=== PATIENT | female | born 1985 | race Caucasian/White ===

== ENCOUNTER 2018-06-13 17:12 | Inpatient (IN) ==
[2018-06-14] MEDS ORDERED: Acetaminophen 325 MG Tablet PO PRN (04:23)
[2018-06-14] MEDS ORDERED: Vancomycin Consult Pharmacy OTHER PRN (04:28)
--- NOTE | 2018-06-14 04:30 | P.HPIM ---
History of Present Illness Primary Care Physician: No Primary Care Physician History of Present Illness: 32-year-old female with a history of IVDA presented to the ED with complaints of a 5 day fever. Patient states on Friday she started to have fevers and chills with associated nausea and vomiting. Patient is an IV drug abuser of Dilaudid, last dose was 5 PM prior to coming to the hospital. She states she does use it twice a day. She denies any associated chest pain, shortness of breath, dizziness or headaches. Inpatient Certification: I certify that the inpatient services were ordered in accordance with Medicare regulations governing the order. This includes certification that hospital inpatient services are reasonable and necessary and in the case of services not specified as inpatient-only under 42 CFR 419.22(n), that they are appropriately provided as inpatient services in accordance to with the 2-midnight benchmark under 43 CFR 412.3(e) PMFSH - History History Provided By: Patient - Medical History Medical History: Medical History (Last Reviewed 06/14/18 @ 04:18 by SILVIA Oviedo) IV drug abuse Patient denies medical problems - Surgical History Surgical History: Surgical History (Last Reviewed 06/14/18 @ 04:18 by SILVIA Oviedo) H/O tubal ligation History of ankle surgery History of intestinal surgery - Family History Family History: Family History (Last Reviewed 06/14/18 @ 04:18 by SILVAI Oviedo) Other Family history normal - Social History I have reviewed the patient's Social History: Yes - Tobacco History Second Hand Smoke Exposure: Yes Tobacco Use In Past 30 Days: No Smoking Status: Former smoker Tobacco Type: Cigarettes - Alcohol History How Often Do You Have a Drink Containing Alcohol: Never - Substance Use History Substance History: Active Abuse - Substance Use Type Opiates Status: Active Route Used: Intravenously Frequency: DAILY Reason for Use: Feels Good - Immunization History Tetanus Immunization: <5 Years Tetanus Immunization Year if Known: 2014 Hx Influenza Vaccine This Season: No Medications and Allergies Allergies Allergy/AdvReac Type Severity Reaction Status Date / Time No Known Allergies Allergy Unverified 06/13/18 17:20 Home Medications Medication Instructions Recorded Confirmed Type No Known Home Medications 06/13/18 06/13/18 History Exam Vital signs: Intake & Output 06/13/18 06/13/18 06/14/18 06:59 18:59 06:59 Weight 62.2 kg Other: Weight On Admission 62.2 kg Narrative: GENERAL: This is a well-nourished, well-developed patient, in no apparent distress. SKIN: Warm, dry, intact, no ecchymosis or open lesions EYES: Pupils equal round and reactive, no scleral edema or drainage CARDIOVASCULAR: Regular rate and rhythm without murmurs, gallops, or rubs. RESPIRATORY: Clear to auscultation. Breath sounds equal bilaterally. No wheezes , rales, or rhonchi. GASTROINTESTINAL: Abdomen soft, non-tender, nondistended. Normal active bowel sounds MUSCULOSKELETAL: Extremities without clubbing, cyanosis, or edema. NEURO: Alert & Oriented x4 to person, place, time, situation. Moves all ext x4 Caprini VTE Risk Assessment Caprini VTE Risk Assessment: No/Low Risk (score <= 1) Caprini Risk Assessment Model: Point Value = 1 Point Value = 2 Point Value = 3 Point Value = 5 Age 41-60 Minor surgery BMI > 25 kg/m2 Swollen legs Varicose veins or History of unexplained or recurrent spontaneous Oral contraceptives or hormone replacement Sepsis (< 1 month) Serious lung disease, including pneumonia (< 1 month) Abnormal pulmonary function Acute myocardial infarction Congestive heart failure (< 1 month) History of inflammatory bowel disease Medical patient at bed rest Age 61-74 Arthroscopic surgery Major open surgery (> 45 min) Laparoscopic surgery (> 45 min) Malignancy Confined to bed (> 72 hours) Immobilizing plaster cast Central venous access Age >= 75 History of VTE Family history of VTE Factor V Leiden Prothrombin [id number] Lupus anticoagulant Anticardiolipin antibodies Elevated serum homocysteine Heparin-induced thrombocytopenia Other congenital or acquired thrombophilia Stroke (< 1 month) Elective arthroplasty Hip, pelvis, or leg fracture Acute spinal cord injury (< 1 month) Prophylaxis Regimen: Total Risk Factor Score Risk Level Prophylaxis Regimen 0-1 Low Early ambulation 2 Moderate Order ONE of the following: *Sequential Compression Device (SCD) *Heparin 5000 units SQ BID 3-4 Higher Order ONE of the following medications: *Heparin 5000 units SQ TID *Enoxaparin/Lovenox 40 mg SQ daily (WT < 150 kg, CrCl > 30 mL/min) *Enoxaparin/Lovenox 30 mg SQ daily (WT < 150 kg, CrCl > 10-29 mL/min) *Enoxaparin/Lovenox 30 mg SQ BID (WT < 150 kg, CrCl > 30 mL/min) AND/OR *Sequential Compression Device (SCD) 5 or more Highest Order ONE of the following medications: *Heparin 5000 units SQ TID (Preferred with Epidurals) *Enoxaparin/Lovenox 40 mg SQ daily (WT < 150 kg, CrCl > 30 mL/min) *Enoxaparin/Lovenox 30 mg SQ daily (WT < 150 kg, CrCl > 10-29 mL/min) *Enoxaparin/Lovenox 30 mg SQ BID (WT < 150 kg, CrCl > 30 mL/min) AND *Sequential Compression Device (SCD) Assessment and Plan - Plan Sepsis, with bandemia, suspect endocarditis WBC 25.4, 27% bands, HR 111 2D echo ordered Blood cultures pending IV antibiotics Fer Consult infectious disease for evaluation Labs in a.m. Acute kidney injury, creatinine 1.3, likely due to dehydration IVF Trend creatinine Avoid nephrotoxins IVDA Cessation given, counseled on quitting Monitor for withdrawals DVT prophylaxis: Lovenox Discussed Condition With: Patient and RN H&P: Quality - VTE Deep Vein Thrombosis/Pulmonary Embolism Present on Admission: No
[2018-06-14] MEDS: Enoxaparin Inj 40 MG/0.4 ML Syringe SQ SCH (06:08)
[2018-06-14] MEDS: Sod Chloride 0.9% Inj 1,000 ML IV.CONT SCH ×3 (06:17→21:26)
[2018-06-14 06:45] LABS: Baso % (Auto) 0.1 % (0.0-2.0); Eos % (Auto) 0.2 % (0.0-4.0); Hematocrit 33.6 % (35.0-46.0); Hemoglobin 11.5 gm/dL (11.6-15.3); Lymph # (Auto) 0.8 th/mm3 (1.0-4.8); Lymph % (Auto) 4.3 % (9.0-44.0); Mean Corpuscular HGB Conc 34.3 % (32.0-36.0); Mean Corpuscular Hemoglobin 31.1 pg (27.0-34.0); Mean Corpuscular Volume 90.7 fL (80.0-100.0); Mean Platelet Volume 8.5 fL (7.0-11.0); Mono # (Auto) 1.9 th/mm3 (0.0-0.9); Mono % (Auto) 9.5 % (0.0-8.0); Neut # (Auto) 16.8 th/mm3 (1.8-7.7); Neut % (Auto) 85.9 % (16.0-70.0); Platelet Count 231 th/mm3 (150-450); Red Cell Distribution Width 13.9 % (11.6-17.2); White Blood Count 19.6 th/mm3 (4.0-11.0)
[2018-06-14] MEDS: Piperacil/Tazo 3.375 GM Premix 50 ML IV.SIG SCH ×3 (06:54→18:29)
[2018-06-14 07:15] LABS: Albumin 2.2 g/dL (3.4-5.0); Anion Gap 12 meq/L (5-15); Aspartate Aminotransferase 90 U/L (15-37); Blood Urea Nitrogen 28 mg/dL (7-18); Calcium 7.8 mg/dL (8.5-10.1); Carbon Dioxide 19.5 meq/L (21.0-32.0); Chloride 104 meq/L (98-107); Glomerular Filtration Rate 31 mL/min (>89); Glucose,Random 96 mg/dL (74-106); Potassium 3.3 meq/L (3.5-5.1); Sodium 135 meq/L (136-145)
[2018-06-14 07:17] LABS: Alanine Aminotransferase 99 U/L (10-53)
[2018-06-14 07:19] LABS: Alkaline Phosphatase 177 U/L (45-117); Total Protein 6.3 g/dL (6.4-8.2)
[2018-06-14 08:04] LABS: Dohle Bodies Present; Lymphocytes 3 % (9-44); Monocytes 5 % (0-8)
[2018-06-14 08:05] LABS: Platelet Estimate Normal (Normal); Platelet Morphology Normal (Normal)
--- NOTE | 2018-06-14 08:19 | XR ---
EXAM DATE: 06/14/2018 8:09 AM EDT AGE/SEX: 32 years / Female INDICATIONS: Evaluate for Infiltrate CLINICAL DATA: This is the patient's initial encounter. Patient reports that signs and symptoms have been present for 1 day and indicates a pain score of 0/10. MEDICAL/SURGICAL HISTORY: None. None. COMPARISON: No prior exams available for comparison. FINDINGS: A single AP view of the chest demonstrates the lungs to be symmetrically aerated without evidence of mass, infiltrate or effusion. The cardiomediastinal contours are unremarkable. Osseous structures a re intact. CONCLUSION: Negative examination. Electronically signed by: Cirilo Sultana MD 06/14/2018 8:17 AM EDT
--- NOTE | 2018-06-14 11:11 | P.PN ---
Subjective Interval history: Follow-up on patient with history of IV drug use, fever times 5 days. Patient seen and examined. Patient states that she feels a little better since being admitted. She continues to have fevers but denies any nausea, vomiting, chest pain or shortness of breath. She denies any hematuria, dysuria or diarrhea. Patient admits that she is an IV drug user and last used Dilaudid yesterday. Physical Exam Vital signs: Vital Signs 06/14/18 04:00 06/14/18 08:00 Temperature 101.6 F H 98.5 F Pulse Rate 98 H 72 Respiratory Rate 18 20 Blood Pressure 102/55 L 88/53 L Pulse Oximetry 98 97 Intake & Output 06/13/18 06/14/18 06/14/18 18:59 06:59 18:59 Intake Total 550 / 550 Balance 550 / 550 Weight 62.2 kg Intake: IV 50 / 50 Zosyn 3.375 GM Premix 50 ML @ 50 / 50 100 mls/hr IV.SIG Q6H LOLITA Rx#: [id number] Oral 500 / 500 Other: Weight On Admission 62.2 kg Narrative: GENERAL: Well-developed well-nourished female, in no acute distress. Awake and alert. SKIN: Warm and sweaty. HEAD: Atraumatic. Normocephalic. EYES: Pupils equal and round. No scleral icterus. No injection or drainage. ENT: No nasal bleeding or discharge. Mucous membranes pink and moist. NECK: Trachea midline. CARDIOVASCULAR: Regular rate and rhythm. No murmur auscultated. RESPIRATORY: No accessory muscle use. Clear to auscultation. Breath sounds equal bilaterally. GASTROINTESTINAL: Abdomen soft, non-tender, nondistended. +BS. MUSCULOSKELETAL: Extremities without clubbing, cyanosis, or edema. No obvious deformities. NEUROLOGICAL: Awake and alert. No obvious cranial nerve deficits. Motor grossly within normal limits. Able to move all extremities spontaneously. Normal speech. PSYCHIATRIC: Appropriate mood and affect; insight and judgment poor. Results - Labs CBC & Chem 7: 06/14/18 06:03 06/14/18 06:03 Laboratory Results - last 24 hr 06/14/18 06/14/18 06:03 06:03 WBC 19.6 H RBC 3.70 L Hgb 11.5 L Hct 33.6 L MCV 90.7 MCH 31.1 MCHC 34.3 RDW 13.9 Plt Count 231 MPV 8.5 Prelim Diff (Auto) Slide review pending Neut % (Auto) 85.9 H Lymph % (Auto) 4.3 L [place] % (Auto) 9.5 H Eos % (Auto) 0.2 Baso % (Auto) 0.1 Neut # (Auto) 16.8 H Lymph # (Auto) 0.8 L [place] # (Auto) 1.9 H Eos # (Auto) 0.0 Baso # (Auto) 0.0 WBC Differential Manual diff final Seg Neuts % (Manual) 80 H Band Neuts % (Manual) 12 H Lymphocytes % (Manual) 3 L Monocytes % (Manual) 5 Abs Neuts (Manual) 18.0 H Differential Comment . Dohle Bodies Present H Platelet Estimate Normal Platelet Morphology Normal Sodium 135 L Potassium 3.3 L Chloride 104 Carbon Dioxide 19.5 L Anion Gap 12 BUN 28 H Creatinine 1.91 H Estimated GFR 31 L Random Glucose 96 Calcium 7.8 L D Total Bilirubin 0.5 AST 90 H ALT 99 H Alkaline Phosphatase 177 H Total Protein 6.3 L D Albumin 2.2 L - Imaging Impressions Chest X-Ray 06/14/18 00:00 CONCLUSION: Negative examination. Assessment and Plan - Plan 32-year-old female with a history of current IVDU who last used Dilaudid yesterday presented to the ED with complaints of a 5 day fever. Sepsis, with bandemia, suspect endocarditis WBC 25.4, 27% bands, HR 111, Tmax 101.6 CXR neg, images reviewed by ks 2D echo ordered Blood cultures pending. Follow until finalized Continue on IV antibiotics Maxwell and Naima Consult infectious disease for evaluation obtain lactic acid level Acute kidney injury, creatinine 1.3, likely due to dehydration and sepsis creatinine trending up, now 1.91 increase rate of IVF obtain renal US Avoid nephrotoxins continue to monitor kidney function closely Transaminitis, suspect secondary to sepsis avoid hepatotoxic agents check coag studies continue to trend LFTs Hypotension, asymptomatic increase rate of IVF continue to monitor BP IVDA, current, last used Dilaudid day prior to admission Cessation counseling given Monitor for withdrawals Hypokalemia po repletion ordered repeat K level in am to monitor response DVT prophylaxis: Lovenox Code Status: FULL Discussed Condition With: patient, nursing staff, Dr. Mckeon Discharge Planning: Not ready for discharge
--- NOTE | 2018-06-14 12:07 | US ---
EXAM DATE: 06/14/2018 12:04 PM EDT AGE/SEX: 32 years / Female INDICATIONS: Increased BUN/Creat nine. CLINICAL DATA: This is the patient's initial encounter. Patient reports that signs and symptoms have been present for 1 week and indicates a pain score of 2/10. MEDICAL/SURGICAL HISTORY: . IV drug abuse. Tubal ligation. Ankle surgery. Intestinal surgery. COMPARISON: No prior exams available for comparison. MEASUREMENTS: Right Kidney:__12.9 x 5.4 x 5.4 cm Left Kidney:__13.1 x 5.1 x 6.0 cm FINDINGS: Right Kidney: Increased echotexture. No mass or hydronephrosis. Left Kidney: Increased echotexture. No mass or hydronephrosis. Bladder: Within normal limits given the degree of distension. Other: None. CONCLUSION: 1. Sonographic findings consistent with underlying medical renal disease. No obstruction. Electronically signed by: Mumtaz Costello MD 06/14/2018 12:06 PM EDT
[2018-06-14 12:34] LABS: INR 1.1 Ratio; Prothrombin Time 11.6 sec (9.8-11.6)
--- NOTE | 2018-06-14 13:27 | P.CONID ---
History of Present Illness Service: Infectious Disease Consult date: 06/14/18 Requesting Physician: Gisel Ayoub Reason for Consult: Evaluation and Mment of Sepsis, Endocarditis Primary Care Provider: No Primary Care Physician Family Provider: MAURICE PONCE/[facility] History of Present Illness: Ms. Ghotra is a 32-year-old female with past medical history significant for IV drug abuse who presented to the emergency room and felt complaints of a 5 day fever. Patient reports that she started having fevers and chills associated with nausea approximately 5 days back. Patient reports that she continues to use IV Dilaudid and the last dose was a few hours prior to her hospitalization. She reports that she uses intravenous Dilaudid at least twice a day. Patient denies any prior history of endocarditis or any other distant infection like epidural abscess or discitis Patient denies any prior history of knee effusions. Patient denies any chest pain shortness of breath dizziness or headaches. Patient denies any visual changes. Infectious diseases consulted for evaluation and management of possible sepsis and endocarditis. At the time of my evaluation patient is on a regular floor. Sepsis workup including blood cultures and urine cultures were drawn. At the time of my dictation of this note later in the evening the blood cultures are now positive for gram-negative rods in blood as well as urine. Review of Systems All other systems reviewed negative except as stated in HPI PMFSH - History History Provided By: Patient - Medical History Medical History: Medical History (Last Reviewed 06/14/18 @ 04:18 by SILVIA Oviedo) IV drug abuse Patient denies medical problems - Surgical History Surgical History: Surgical History (Last Reviewed 06/14/18 @ 04:18 by SILVIA Oviedo) H/O tubal ligation History of ankle surgery History of intestinal surgery - Family History Family History: Family History (Last Reviewed 06/14/18 @ 04:18 by SILVIA Oviedo) Other Family history normal - Tobacco History Second Hand Smoke Exposure: Yes Tobacco Use In Past 30 Days: No Smoking Status: Former smoker Tobacco Type: Cigarettes - Alcohol History How Often Do You Have a Drink Containing Alcohol: Never - Substance Use History Substance History: Active Abuse - Substance Use Type Opiates Status: Active Route Used: Intravenously Frequency: DAILY Reason for Use: Feels Good - Immunization History Tetanus Immunization: <5 Years Tetanus Immunization Year if Known: 2014 Hx Influenza Vaccine This Season: No Medications and Allergies Active Medications: Active Medications Acetaminophen (Tylenol) 650 mg PO Q4H PRN PRN Reason: Temp > 100.4 Last Admin: 06/14/18 06:07 Dose: 650 mg Enoxaparin Sodium (Lovenox Inj) 40 mg SQ Q24H LOLITA Last Admin: 06/14/18 06:08 Dose: 40 mg Sodium Chloride (Ns Inj) 1,000 mls @ 200 mls/hr IV.CONT .Q5H LOLITA Last Admin: 06/14/18 06:17 Dose: 100 mls/hr Piperacillin/Tazobactam/Dextrose (Zosyn 3.375 Gm Premix) 50 mls @ 100 mls/hr IV.SIG Q6H LOLITA Last Infusion: 06/14/18 12:24 Dose: Infused Vancomycin HCl 850 mg/ Sodium (Chloride) 258.5 mls @ 258.5 mls/hr IV.SIG Q24H LOLITA Miscellaneous Information ([facility] Ordered Lab Info) 0 each OTHER ONCE ONE Stop: 06/16/18 19:46 Ondansetron HCl (Zofran Inj) 4 mg IV.PUSH Q6H PRN PRN Reason: NAUSEA OR VOMITING Pharmacy Profile Note (Vancomycin Consult Pharmacy) 1 each OTHER UNSCH PRN PRN Reason: Pharmacy to dose Allergies Allergy/AdvReac Type Severity Reaction Status Date / Time No Known Allergies Allergy Unverified 06/13/18 17:20 Home Medications Medication Instructions Recorded Confirmed Type No Known Home Medications 06/13/18 06/13/18 History Exam Vital signs: Vital Signs 06/14/18 04:00 06/14/18 08:00 Temperature 101.6 F H 98.5 F Pulse Rate 98 H 72 Respiratory Rate 18 20 Blood Pressure 102/55 L 88/53 L Pulse Oximetry 98 97 Intake & Output 06/13/18 06/14/18 06/14/18 18:59 06:59 18:59 Intake Total 600 / 600 Balance 600 / 600 Weight 62.2 kg Intake: IV 100 / 100 Zosyn 3.375 GM Premix 50 ML @ 100 / 100 100 mls/hr IV.SIG Q6H LOLITA Rx#: [id number] Oral 500 / 500 Other: Date of Last Bowel Movement 06/13/18 Weight On Admission 62.2 kg Narrative: GENERAL: Well-nourished well-developed, not in acute distress SKIN: Track hilario noted. Multiple tattoos noted. HEAD: Atraumatic. Normocephalic. No temporal or scalp tenderness. EYES: Pupils equal round and reactive. Scleral icterus. No injection or drainage. No petechia ENT: Nothing abnormal detected NECK: Trachea midline. Supple, nontender, no meningeal signs. CARDIOVASCULAR: HS audible. RESPIRATORY: Clear to auscultation bilaterally. GASTROINTESTINAL: Abdomen soft nontender. MUSCULOSKELETAL: Extremities without clubbing, cyanosis. NEUROLOGICAL: Alert oriented 3. Nonfocal. Psych cooperative IV line sites ok. Results - Labs CBC & Chem 7: 06/15/18 12:55 06/15/18 12:55 Labs: Laboratory Results - last 24 hr 06/14/18 06/14/18 06/14/18 06:03 06:03 12:11 WBC 19.6 H RBC 3.70 L Hgb 11.5 L Hct 33.6 L MCV 90.7 MCH 31.1 MCHC 34.3 RDW 13.9 Plt Count 231 MPV 8.5 Prelim Diff (Auto) Slide review pending Neut % (Auto) 85.9 H Lymph % (Auto) 4.3 L [place] % (Auto) 9.5 H Eos % (Auto) 0.2 Baso % (Auto) 0.1 Neut # (Auto) 16.8 H Lymph # (Auto) 0.8 L [place] # (Auto) 1.9 H Eos # (Auto) 0.0 Baso # (Auto) 0.0 WBC Differential Manual diff final Seg Neuts % (Manual) 80 H Band Neuts % (Manual) 12 H Lymphocytes % (Manual) 3 L Monocytes % (Manual) 5 Abs Neuts (Manual) 18.0 H Differential Comment . Dohle Bodies Present H Platelet Estimate Normal Platelet Morphology Normal PT INR Sodium 135 L Potassium 3.3 L Chloride 104 Carbon Dioxide 19.5 L Anion Gap 12 BUN 28 H Creatinine 1.91 H Estimated GFR 31 L Random Glucose 96 Lactic Acid 2.1 H Calcium 7.8 L D Total Bilirubin 0.5 AST 90 H ALT 99 H Alkaline Phosphatase 177 H Total Protein 6.3 L D Albumin 2.2 L 06/14/18 12:11 WBC RBC Hgb Hct MCV MCH MCHC RDW Plt Count MPV Prelim Diff (Auto) Neut % (Auto) Lymph % (Auto) [place] % (Auto) Eos % (Auto) Baso % (Auto) Neut # (Auto) Lymph # (Auto) [place] # (Auto) Eos # (Auto) Baso # (Auto) WBC Differential Seg Neuts % (Manual) Band Neuts % (Manual) Lymphocytes % (Manual) Monocytes % (Manual) Abs Neuts (Manual) Differential Comment Dohle Bodies Platelet Estimate Platelet Morphology PT 11.6 INR 1.1 Sodium Potassium Chloride Carbon Dioxide Anion Gap BUN Creatinine Estimated GFR Random Glucose Lactic Acid Calcium Total Bilirubin AST ALT Alkaline Phosphatase Total Protein Albumin - Imaging Impressions Abdomen/Bladder Ultrasound 06/14/18 00:00 CONCLUSION: 1. Sonographic findings consistent with underlying medical renal disease. No obstruction. Chest X-Ray 06/14/18 00:00 CONCLUSION: Negative examination. Assessment and Plan - Plan Sepsis Gram-negative paul bacteremia Gram-negative paul UTI versus translocation Intravenous drug abuse with Dilaudid Recs: continue Zosyn IV Continue vancomycin IV for now Follow cultures Follow clinical course Follow 2D echo Check hepatitis profile. Repeat blood cultures 2 Case discussed with Terri FRANCO
[2018-06-14] MEDS: Vancomycin Inj 850 MG in Sodium Chlor 0.9% Inj 250 ML IV.SIG SCH (21:26)
[2018-06-15] MEDS: Piperacil/Tazo 3.375 GM Premix 50 ML IV.SIG SCH ×4 (00:21→17:53)
[2018-06-15] MEDS: Sod Chloride 0.9% Inj 1,000 ML IV.CONT SCH ×4 (00:38→17:52)
[2018-06-15] MEDS: Enoxaparin Inj 40 MG/0.4 ML Syringe SQ SCH (05:27)
--- NOTE | 2018-06-15 11:37 | P.PN ---
Subjective Interval history: Follow-up on patient with history of IV drug use, fever times 5 days. Patient seen and examined. Patient states she does not feel well. She complains of nausea and vomiting x 2 this am. Nonbloody. She cannot tolerate diet. She complains of abdominal pain. She denies any dysuria or hematuria. She denies any diarrhea. She denies any fever or chills. Physical Exam Vital signs: Vital Signs 06/14/18 12:00 06/14/18 14:39 06/14/18 16:00 Temperature 98.1 F 99.3 F Pulse Rate 76 85 Respiratory Rate 20 20 Blood Pressure 87/48 L 87/49 L 118/62 Pulse Oximetry 97 99 06/14/18 19:36 06/14/18 20:00 06/15/18 00:00 Temperature 98.0 F 98.0 F Pulse Rate 98 H 70 Respiratory Rate 18 18 18 Blood Pressure 106/54 L 114/71 Pulse Oximetry 98 99 06/15/18 00:54 06/15/18 04:00 06/15/18 07:28 Temperature 97.6 F Pulse Rate 60 Respiratory Rate 18 18 18 Blood Pressure 116/78 Pulse Oximetry 98 06/15/18 08:00 Temperature 97.4 F L Pulse Rate 62 Respiratory Rate 16 Blood Pressure 120/76 Pulse Oximetry 99 Intake & Output 06/14/18 06/15/18 06/15/18 18:59 06:59 18:59 Intake Total 1600 / 1600 2408.5 / 2408.5 1000 / 1000 Balance 1600 / 1600 2408.5 / 2408.5 1000 / 1000 Weight 66.3 kg Intake: IV 1100 / 1100 2408.5 / 2408.5 1000 / 1000 NS Inj 1,000 ML @ 200 mls/hr IV 1000 / 1000 2000 / 2000 1000 / 1000 .CONT .Q5H LOLITA Rx#:[id number] Zosyn 3.375 GM Premix 50 ML @ 100 / 100 150 / 150 100 mls/hr IV.SIG Q6H LOLITA Rx#: [id number] Vancomycin Inj 850 MG In NS Inj 258.5 / 258.5 250 ML @ 258.5 mls/hr IV.SIG Q24H LOLITA Rx#:[id number] Oral 500 / 500 Other: # Voids 3 Date of Last Bowel Movement 06/13/18 06/14/18 Narrative: GENERAL: Well-developed well-nourished female, in no acute distress. Awake and alert. Sitting up in bed. Does not look well. SKIN: Warm and dry. No generalized rash. HEAD: Atraumatic. Normocephalic. EYES: Pupils equal and round. No scleral icterus. No injection or drainage. ENT: No nasal bleeding or discharge. Mucous membranes pink and moist. NECK: Trachea midline. CARDIOVASCULAR: Regular rate and rhythm. No murmur auscultated. RESPIRATORY: No accessory muscle use. Clear to auscultation. Breath sounds equal bilaterally. GASTROINTESTINAL: Abdomen soft, nondistended. +BS. +exquisitely tender to palpation over RUQ. MUSCULOSKELETAL: Extremities without clubbing, cyanosis, or edema. No obvious deformities. NEUROLOGICAL: Awake and alert. No obvious cranial nerve deficits. Motor grossly within normal limits. Able to move all extremities spontaneously. Normal speech. PSYCHIATRIC: Appropriate mood and affect; insight and judgment poor. Results - Labs CBC & Chem 7: 06/14/18 06:03 06/14/18 06:03 Laboratory Results - last 24 hr 06/14/18 06/14/18 06/14/18 12:11 12:11 14:33 PT 11.6 INR 1.1 Lactic Acid 2.1 H 1.5 - Imaging Impressions Abdomen/Bladder Ultrasound 06/14/18 00:00 CONCLUSION: 1. Sonographic findings consistent with underlying medical renal disease. No obstruction. Assessment and Plan - Plan 32-year-old female with a history of current IVDU who last used Dilaudid yesterday presented to the ED with complaints of a 5 day fever. Sepsis, with bandemia, suspect endocarditis WBC 25.4, 27% bands, HR 111, Tmax 101.6, resolving Gram - bacteremia Urine cx + GNR CXR neg 2D echo ordered/pending Lactic acid 2.1 -> 1.5 Blood cultures + GNR in 1/4 bottles. Follow until finalized. Repeat BCX ordered. ID following, appreciate assistance Continue on IV antibiotics Vanco and Zosyn N/V, RUQ pain no diarrhea, reports normal BM not tolerating diet change to clear liquid diet Obtain Gallbladder US IVF Antiemetics prn monitor for improvement UTI UCX + GNR Continue on Zosyn follow urine cx until finalized Acute kidney injury, creatinine 1.3, likely due to dehydration and sepsis Renal US shows medical renal dz creatinine trending up, now 1.91 continue on IVF Avoid nephrotoxins continue to monitor kidney function closely - repeat BMP pending Transaminitis, suspect secondary to sepsis INR 1.1 avoid hepatotoxic agents continue to trend LFTs Hypotension, asymptomatic improving on IVF continue to monitor BP IVDA, current, last used Dilaudid day prior to admission Cessation counseling given Monitor for withdrawals Hypokalemia po repletion ordered repeat K level in am to monitor response - pending DVT prophylaxis: Lovenox Code Status: FULL Discussed Condition With: patient, nursing staff, Dr. Larsen Discharge Planning: Not ready for discharge
--- NOTE | 2018-06-15 13:18 | ECHRPT ---
Indication: SEPSIS CONCLUSIONS No significant valvular abnormalities or evidence of vegetations seen on today's transthoracic echocardiogram. The left ventricular systolic function is normal with an estimated ejection fraction in the range of 55-60%. Normal left ventricular size and wall thickness. No regional wall motion abnormalities are present. The estimated pulmonary arterial pressure is 33.6 mmHg. IVC is normal size with > 50% collapse. No prior echo for comparision. BP: / HR: 49 Rhythm: Sinus MEASUREMENTS (Male / Female) Normal Values Technical Quality:Good 2D ECHO LV Diastolic Diameter PLAX 5.1 cm 4.2 - 5.9 / 3.9 - 5.3 cm LV Systolic Diameter PLAX 3.5 cm IVS Diastolic Thickness 0.9 cm 0.6 - 1.0 / 0.6 - 0.9 cm LVPW Diastolic Thickness 1.0 cm 0.6 - 1.0 / 0.6 - 0.9 cm LV Relative Wall Thickness 0.4 RV Internal Dim ED PLAX 2.5 cm LVOT Diameter 2.1 cm LA Systolic Diameter LX 3.5 cm 3.0 - 4.0 / 2.7 - 3.8 cm LV Ejection Fraction MOD 4C 56.7 % LV Ejection Fraction 4C AL 58.3 % M-MODE Aortic Root Diameter MM 2.3 cm LA Systolic Diameter MM 3.7 cm LA Ao Ratio MM 1.6 AV Cusp Separation MM 1.8 cm DOPPLER AV Peak Velocity 136.0 cm/s AV Peak Gradient 7.4 mmHg LVOT Peak Velocity 89.3 cm/s LVOT Peak Gradient 3.2 mmHg AV Area Cont Eq pk 2.3 cm MV Area PHT 3.2 cm Mitral E Point Velocity 70.6 cm/s Mitral A Point Velocity 42.9 cm/s Mitral E to A Ratio 1.6 LV E' Lateral Velocity 16.0 cm/s Mitral E to LV E' Lateral Ratio 4.4 LV E' Septal Velocity 6.8 cm/s Mitral E to LV E' Septal Ratio 10.4 TR Peak Velocity 243.0 cm/s TR Peak Gradient 23.6 mmHg Right Atrial Pressure 10.0 mmHg Pulmonary Artery Systolic Pressu 33.6 mmHg Right Ventricular Systolic Press 33.6 mmHg PV Peak Velocity 61.1 cm/s PV Peak Gradient 1.5 mmHg FINDINGS LEFT VENTRICLE The left ventricular systolic function is normal with an estimated ejection fraction in the range of 55-60%. Normal left ventricular size. Wall thickness is normal. No regional wall motion abnormalities are present. RIGHT VENTRICLE Normal right ventricular size and systolic function. LEFT ATRIUM The left atrial size is normal. RIGHT ATRIUM The right atrial size is normal. ATRIAL SEPTUM Normal atrial septal thickness without atrial level shunting by limited color doppler interrogation. AORTA The aortic root and proximal ascending aorta are normal in size on limited imaging. MITRAL VALVE Mildly thickened mitral valve leaflets. Trace mitral valve regurgitation. AORTIC VALVE Trileaflet aortic valve. No aortic valve stenosis or regurgitation. TRICUSPID VALVE Structurally normal tricuspid valve. There is trace tricuspid valve regurgitation. The estimated pulmonary arterial pressure is 33.6 mmHg. PULMONARY VALVE No pulmonary valve regurgitation or stenosis. VESSELS The inferior vena cava is normal in size. PERICARDIUM No pericardial effusion. Flores Call MD (Electronically Signed) Final Date:15 June 2018 13:17
[2018-06-15 13:38] LABS: Baso % (Auto) 0.2 % (0.0-2.0); Eos # (Auto) 0.3 th/mm3 (0.0-0.4); Eos % (Auto) 1.5 % (0.0-4.0); Hematocrit 36.6 % (35.0-46.0); Hemoglobin 12.2 gm/dL (11.6-15.3); Lymph # (Auto) 1.6 th/mm3 (1.0-4.8); Mean Corpuscular HGB Conc 33.2 % (32.0-36.0); Mean Corpuscular Hemoglobin 30.9 pg (27.0-34.0); Mean Corpuscular Volume 93.2 fL (80.0-100.0); Mean Platelet Volume 8.8 fL (7.0-11.0); Mono # (Auto) 0.9 th/mm3 (0.0-0.9); Mono % (Auto) 4.9 % (0.0-8.0); Neut # (Auto) 15.2 th/mm3 (1.8-7.7); Neut % (Auto) 84.4 % (16.0-70.0); Platelet Count 253 th/mm3 (150-450); Red Blood Count 3.93 mil/mm3 (4.00-5.30); Red Cell Distribution Width 14.2 % (11.6-17.2)
[2018-06-15 13:51] LABS: Alanine Aminotransferase 133 U/L (10-53); Alkaline Phosphatase 218 U/L (45-117); Anion Gap 11 meq/L (5-15); Aspartate Aminotransferase 118 U/L (15-37); Blood Urea Nitrogen 36 mg/dL (7-18); Calcium 8.2 mg/dL (8.5-10.1); Carbon Dioxide 18.3 meq/L (21.0-32.0); Chloride 112 meq/L (98-107); Glomerular Filtration Rate 32 mL/min (>89); Glucose,Random 88 mg/dL (74-106); Lipase 200 U/L (73-393); Potassium 4.2 meq/L (3.5-5.1); Sodium 141 meq/L (136-145); Total Protein 6.8 g/dL (6.4-8.2)
[2018-06-15 14:10] LABS: Hepatitits B Surface Antigen Nonreactive (Nonreactive)
[2018-06-15 14:39] LABS: Hepatitis A IgM Antibody Nonreactive (Nonreactive)
[2018-06-15 14:56] LABS: Platelet Estimate Normal (Normal); Platelet Morphology Normal (Normal)
--- NOTE | 2018-06-15 15:00 | P.PNID ---
Subjective Remarks: Ms. Ghotra is a 32-year-old female with past medical history significant for IV drug abuse who presented to the emergency room and felt complaints of a 5 day fever. Patient reports that she started having fevers and chills associated with nausea approximately 5 days back. Patient reports that she continues to use IV Dilaudid and the last dose was a few hours prior to her hospitalization. She reports that she uses intravenous Dilaudid at least twice a day. Patient denies any prior history of endocarditis or any other distant infection like epidural abscess or discitis Patient denies any prior history of knee effusions. Patient denies any chest pain shortness of breath dizziness or headaches. Patient denies any visual changes. Infectious diseases consulted for evaluation and management of possible sepsis and endocarditis. At the time of my evaluation patient is on a regular floor. Sepsis workup including blood cultures and urine cultures were drawn. At the time of my dictation of this note later in the evening the blood cultures are now positive for gram-negative rods in blood as well as urine. Overnight events reviewed. No fever No rash No diarrhea Complains of epigastric abdominal pain. Upon questioning reports that patient takes several tablets of ibuprofen as well as Tylenol several times a day due to Antibiotics: Zosyn IV Vanco IV Lines: Line sites look okay Past Medical History: Reviewed. Allergies/Adverse Reactions: Allergies No Known Allergies Allergy (Unverified 06/13/18 17:20) Objective Vital Signs 06/14/18 16:00 06/14/18 19:36 06/14/18 20:00 Temperature 99.3 F 98.0 F Pulse Rate 85 98 H Respiratory Rate 20 18 18 Blood Pressure 118/62 106/54 L Pulse Oximetry 99 98 06/15/18 00:00 06/15/18 00:54 06/15/18 04:00 Temperature 98.0 F 97.6 F Pulse Rate 70 60 Respiratory Rate 18 18 18 Blood Pressure 114/71 116/78 Pulse Oximetry 99 98 06/15/18 07:28 06/15/18 08:00 06/15/18 12:00 Temperature 97.4 F L 97.7 F Pulse Rate 62 61 Respiratory Rate 18 16 16 Blood Pressure 120/76 122/76 Pulse Oximetry 99 100 Intake & Output 06/14/18 06/15/18 06/15/18 18:59 06:59 18:59 Intake Total 1600 / 1600 2408.5 / 2408.5 1050 / 1050 Balance 1600 / 1600 2408.5 / 2408.5 1050 / 1050 Weight 66.3 kg Intake: IV 1100 / 1100 2408.5 / 2408.5 1050 / 1050 NS Inj 1,000 ML @ 200 mls/hr IV 1000 / 1000 2000 / 2000 1000 / 1000 .CONT .Q5H [facility] Rx#:[id number] Zosyn 3.375 GM Premix 50 ML @ 100 / 100 150 / 150 50 / 50 100 mls/hr IV.SIG Q6H LOL[facility] Rx#: [id number] Vancomycin Inj 850 MG In NS Inj 258.5 / 258.5 250 ML @ 258.5 mls/hr IV.SIG Q24H LOLITA Rx#:[id number] Oral 500 / 500 Other: # Voids 3 Date of Last Bowel Movement 06/13/18 06/14/18 06/15/18 12:55 Blood - Peripheral Aerobic Blood Culture - Pending 06/15/18 12:55 Blood - Peripheral Anaerobic Blood Culture - Pending Lab - Hematology Results 06/14/18 06/15/18 06:03 12:55 WBC 19.6 H 18.0 H RBC 3.70 L 3.93 L Hgb 11.5 L 12.2 Hct 33.6 L 36.6 MCV 90.7 93.2 MCH 31.1 30.9 MCHC 34.3 33.2 RDW 13.9 14.2 Plt Count 231 253 MPV 8.5 8.8 Prelim Diff (Auto) Slide review pending Slide review pending Neut % (Auto) 85.9 H 84.4 H Lymph % (Auto) 4.3 L 9.0 Kimball % (Auto) 9.5 H 4.9 Eos % (Auto) 0.2 1.5 Baso % (Auto) 0.1 0.2 Neut # (Auto) 16.8 H 15.2 H Lymph # (Auto) 0.8 L 1.6 Kimball # (Auto) 1.9 H 0.9 Eos # (Auto) 0.0 0.3 Baso # (Auto) 0.0 0.0 WBC Differential Manual diff final . Diff Scan Auto diff confirmed Seg Neuts % (Manual) 80 H Band Neuts % (Manual) 12 H Lymphocytes % (Manual) 3 L Monocytes % (Manual) 5 Abs Neuts (Manual) 18.0 H Differential Comment . . Dohle Bodies Present H Platelet Estimate Normal Normal Platelet Morphology Normal Normal Lab - Chemistry Results 06/14/18 06/14/18 06/14/18 06:03 12:11 14:33 Sodium 135 L Potassium 3.3 L Chloride 104 Carbon Dioxide 19.5 L Anion Gap 12 BUN 28 H Creatinine 1.91 H Estimated GFR 31 L Random Glucose 96 Lactic Acid 2.1 H 1.5 Calcium 7.8 L D Total Bilirubin 0.5 AST 90 H ALT 99 H Alkaline Phosphatase 177 H Total Protein 6.3 L D Albumin 2.2 L Lipase 06/15/18 12:55 Sodium 141 Potassium 4.2 D Chloride 112 H D Carbon Dioxide 18.3 L Anion Gap 11 BUN 36 H Creatinine 1.84 H Estimated GFR 32 L Random Glucose 88 Lactic Acid Calcium 8.2 L Total Bilirubin 0.4 AST 118 H ALT 133 H Alkaline Phosphatase 218 H Total Protein 6.8 Albumin 2.0 L Lipase 200 Imaging: ITS Impressions Abdomen/Bladder Ultrasound 06/14/18 00:00 CONCLUSION: 1. Sonographic findings consistent with underlying medical renal disease. No obstruction. Chest X-Ray 06/14/18 00:00 CONCLUSION: Negative examination. Physical Exam: GENERAL: Well-nourished well-developed, not in acute distress SKIN: Track hilario noted. Multiple tattoos noted. HEAD: Atraumatic. Normocephalic. No temporal or scalp tenderness. EYES: Pupils equal round and reactive. Scleral icterus. No injection or drainage. No petechia ENT: Nothing abnormal detected NECK: Trachea midline. Supple, nontender, no meningeal signs. CARDIOVASCULAR: HS audible. RESPIRATORY: Clear to auscultation bilaterally. GASTROINTESTINAL: Abdomen soft nontender. MUSCULOSKELETAL: Extremities without clubbing, cyanosis. NEUROLOGICAL: Alert oriented 3. Nonfocal. Psych cooperative IV line sites ok. Assessment and Plan - Plan Sepsis Gram-negative paul bacteremia Gram-negative paul UTI versus translocation Intravenous drug abuse with Dilaudid Recs: continue Zosyn IV Continue vancomycin IV for now CT chest abdomen pelvis to look for evidence of septic emboli Follow cultures If repeat blood cultures are positive may need a JACINDA to evaluate further. Follow cultures Follow clinical course Check hepatitis profile. Repeat blood cultures 2 Case discussed with Terri FRANCO
--- NOTE | 2018-06-15 16:31 | US ---
EXAM DATE: 06/15/2018 4:21 PM EDT AGE/SEX: 32 years / Female INDICATIONS: Right upper quadrant pain. CLINICAL DATA: This is the patient's initial encounter. Patient reports that signs and symptoms have been present for 1 week and indicates a pain score of 2/10. MEDICAL/SURGICAL HISTORY: . IV drug abuse. . Tubal ligation. Ankle surgery. Intestinal surgery . COMPARISON: [facility] [place], 06/14/2018. . MEASUREMENTS: Liver:__ 18.6 cm. Common Bile Duct:__ 5mm. Right kidney: 13.8 x 6.0 x 6.9 cm FINDINGS: Liver: Parenchymal echotexture and echogenicity are within normal limits. No focal hepatic lesion id entified. No biliary ductal dilatation. Portal Vein: Hepatopedal flow seen in portal vein. Common Duct: Nondilated. Gallbladder: Not visualized. Pancreas: Poorly visualized due to overlying bowel gas. Right Kidney: Increased cortical echogenicity. No mass or hydronephrosis. Other: Trace ascites. CONCLUSION: 1. The liver is enlarged, but parenchymal echotexture and echogenicity are within normal limits. 2. Nonvisualization of the gallbladder. 3. Trace ascites, which is a nonspecific finding. 4. Increased cortical echogenicity of the right kidney, suggesting medical renal disease. Electronically signed by: Zohra Huber MD 06/15/2018 4:30 PM EDT
[2018-06-15] MEDS: Sucralfate Liq 1 GM/10 ML UDC PO SCH (17:53)
[2018-06-15] MEDS: Heparin - SQ 10,000 UNITS/ML Vial SQ SCH ×2 (17:53→22:01)
[2018-06-15] MEDS ORDERED: Diatrizoate Meglum/Diatrizoate Sod Liq 9 ML UDC PO ONE (20:00)
--- NOTE | 2018-06-15 21:47 | CT ---
EXAM DATE: 06/15/2018 9:37 PM EDT AGE/SEX: 32 years / Female INDICATIONS: Pulmonary disease. CLINICAL DATA: This is the patient's initial encounter. Patient reports that signs and symptoms have been present for 1 day and indicates a pain score of 5/10. MEDICAL/SURGICAL HISTORY: . Intestine Colon resection. Tubal ligation. RADIATION DOSE: 5.21 CTDI (mGy) ; Combined studies COMPARISON: No prior exams available for comparison. TECHNIQUE: Multiple contiguous axial images were obtained through the chest without contrast. Image s were obtained in suspended respiration using multiple row detector helical technique. Using [employer] exposure control and adjustment of the mA and/or kV according to patient size, radiation dose was kept as low as reasonably achievable to obtain optimal diagnostic quality images. DICOM format imag e data is available electronically for review and comparison. FINDINGS: There is dependent atelectasis in the lungs with small bilateral pleural effusions. Minimal left side d basilar airspace disease near the costophrenic angle. There is no definite pericardial effusion. No pneumothorax. No hilar, mediastinal or axillary adenopa thy. No acute findings in the upper abdomen. Previous cholecystectomy. CONCLUSION: 1. Mild dependent atelectasis in the lungs with trace pleural fluid. Minimal left basilar airspace d isease. 2. No adenopathy. No acute bony abnormalities. Electronically signed by: Amish Wiseman MD 06/15/2018 9:46 PM EDT
[2018-06-15] MEDS: Vancomycin Inj 850 MG in Sodium Chlor 0.9% Inj 250 ML IV.SIG SCH (22:00)
--- NOTE | 2018-06-15 22:22 | CT ---
EXAM DATE: 06/15/2018 9:44 PM EDT AGE/SEX: 32 years / Female INDICATIONS: Abdomen pain. CLINICAL DATA: This is the patient's initial encounter. Patient reports that signs and symptoms have been present for 1 day and indicates a pain score of 5/10. MEDICAL/SURGICAL HISTORY: . intestinal Colon resection. Tubal ligation. RADIATION DOSE: 5.21 CTDI (mGy) ; Combined studies COMPARISON: No prior exams available for comparison. TECHNIQUE: Multiple contiguous axial images were obtained through the abdomen. Images were obtained using multiple row detector helical technique. Using automated exposure control and adjustment of the mA and/or kV according to patient size, radiation dose was kept as low as reasonably achievable to o btain optimal diagnostic quality images. DICOM format image data is available electronically for rev iew and comparison. FINDINGS: Trace pleural fluid at the bases with minimal basilar atelectasis. Trace pericardial fluid. No acute findings in the liver, spleen, adrenals or pancreas. Previous cholecystectomy. Tiny nonobstructing 1 mm right renal calculus. No definite left renal calculi. There is mild anasarca and mild ascites. No bowel obstruction. No free air. CONCLUSION: 1. Tiny nonobstructing right renal calculus. 2. Mild anasarca and mild ascites. No bowel obstruction. 3. Trace pleural and pericardial fluid. 4. Previous cholecystectomy. Electronically signed by: Amish Wiseman MD 06/15/2018 10:21 PM EDT
[2018-06-16] MEDS: Piperacil/Tazo 3.375 GM Premix 50 ML IV.SIG SCH ×4 (00:24→23:13)
[2018-06-16] MEDS: Sucralfate Liq 1 GM/10 ML UDC PO SCH ×5 (00:27→23:19)
[2018-06-16] MEDS ORDERED: Chlorhexidine Gluconate 2% 1 Pack (2 Cloths) TOPICAL ONE (05:11)
[2018-06-16] MEDS ORDERED: Sodium Chlor 0.9% Inj 500 ML IV.SIG SCH (06:00)
[2018-06-16] MEDS: Sod Chloride 0.9% Inj 1,000 ML IV.CONT SCH ×2 (06:01→23:14)
[2018-06-16] MEDS: Heparin - SQ 10,000 UNITS/ML Vial SQ SCH ×3 (06:56→23:17)
[2018-06-16 09:23] LABS: Baso % (Auto) 0.4 % (0.0-2.0); Eos # (Auto) 0.3 th/mm3 (0.0-0.4); Eos % (Auto) 2.9 % (0.0-4.0); Hematocrit 33.1 % (35.0-46.0); Hemoglobin 11.2 gm/dL (11.6-15.3); Lymph # (Auto) 1.9 th/mm3 (1.0-4.8); Lymph % (Auto) 17.7 % (9.0-44.0); Mean Corpuscular HGB Conc 33.8 % (32.0-36.0); Mean Corpuscular Hemoglobin 30.8 pg (27.0-34.0); Mean Platelet Volume 8.5 fL (7.0-11.0); Mono % (Auto) 9.1 % (0.0-8.0); Neut # (Auto) 7.4 th/mm3 (1.8-7.7); Neut % (Auto) 69.9 % (16.0-70.0); Platelet Count 255 th/mm3 (150-450); Red Blood Count 3.63 mil/mm3 (4.00-5.30); Red Cell Distribution Width 14.7 % (11.6-17.2); White Blood Count 10.5 th/mm3 (4.0-11.0)
[2018-06-16 09:48] LABS: Alanine Aminotransferase 89 U/L (10-53); Albumin 1.7 g/dL (3.4-5.0); Alkaline Phosphatase 138 U/L (45-117); Anion Gap 9 meq/L (5-15); Aspartate Aminotransferase 60 U/L (15-37); Blood Urea Nitrogen 25 mg/dL (7-18); Calcium 7.8 mg/dL (8.5-10.1); Carbon Dioxide 20.9 meq/L (21.0-32.0); Chloride 111 meq/L (98-107); Glomerular Filtration Rate 37 mL/min (>89); Glucose,Random 69 mg/dL (74-106); Potassium 4.1 meq/L (3.5-5.1); Sodium 141 meq/L (136-145)
--- NOTE | 2018-06-16 11:34 | P.PN ---
Subjective Interval history: Follow-up on patient with history of IV drug use, fever times 5 days. Patient seen and examined. Patient states she feels much better today. She denies any fever or chills. She denies any complaints of abdominal pain. She denies any nausea or vomiting. Denies any chest pain or shortness of breath. She also states that she no longer has pain/numbness or tingling in her feet or toes. She is asking if she can eat. Physical Exam Vital signs: Vital Signs 06/15/18 12:00 06/15/18 15:59 06/15/18 16:00 Temperature 97.7 F 98.5 F Pulse Rate 61 96 H 62 Respiratory Rate 16 16 Blood Pressure 122/76 132/65 Pulse Oximetry 100 99 06/15/18 20:00 06/16/18 00:00 06/16/18 03:24 Temperature 99 F 99.1 F Pulse Rate 92 H 88 88 Respiratory Rate 16 16 Blood Pressure 126/60 109/71 Pulse Oximetry 98 100 06/16/18 04:00 06/16/18 04:14 06/16/18 08:00 Temperature 97.7 F 97.8 F Pulse Rate 51 L 61 58 L Respiratory Rate 18 16 Blood Pressure 109/63 109/56 L Pulse Oximetry 97 99 Intake & Output 06/15/18 06/16/18 06/16/18 18:59 06:59 18:59 Intake Total 2049 1388.5 / 1388.5 Balance 2049 1388.5 / 1388.5 Weight 69 kg Intake: IV 2049 408.5 / 408.5 NS Inj 1,000 ML @ 70 mls/hr IV. 1999 / 1999 CONT .[id number] LOLITA Rx#:[id number] Zosyn 3.375 GM Premix 50 ML @ 50 / 50 150 / 150 100 mls/hr IV.SIG Q6H LOLITA Rx#: [id number] Vancomycin Inj 850 MG In NS Inj 258.5 / 258.5 250 ML @ 258.5 mls/hr IV.SIG Q24H LOLITA Rx#:[id number] Oral 980 / 980 Other: # Voids 3 Date of Last Bowel Movement 06/14/18 06/14/18 Narrative: GENERAL: Well-developed well-nourished female, in no acute distress. Awake and alert. Sitting up in bed. Looks much better today. SKIN: Warm and dry. No generalized rash. HEENT: Atraumatic. Normocephalic. Pupils equal and round. No scleral icterus. No injection or drainage. No nasal bleeding or discharge. Mucous membranes pink and moist. NECK: Trachea midline. CARDIOVASCULAR: Regular rate and rhythm. No murmur auscultated. RESPIRATORY: No accessory muscle use. Clear to auscultation. Breath sounds equal bilaterally. GASTROINTESTINAL: Abdomen soft, nondistended, nontender to palpation. +BS. MUSCULOSKELETAL: Extremities without clubbing, cyanosis, or edema. No obvious deformities. NEUROLOGICAL: Awake and alert. No obvious cranial nerve deficits. Motor grossly within normal limits. Able to move all extremities spontaneously. Normal speech. PSYCHIATRIC: Appropriate mood and affect; insight and judgment poor. Results - Labs CBC & Chem 7: 06/16/18 07:57 06/16/18 07:57 Laboratory Results - last 24 hr 06/15/18 06/15/18 06/15/18 12:55 12:55 12:55 WBC 18.0 H RBC 3.93 L Hgb 12.2 Hct 36.6 MCV 93.2 MCH 30.9 MCHC 33.2 RDW 14.2 Plt Count 253 MPV 8.8 Prelim Diff (Auto) Slide review pending Neut % (Auto) 84.4 H Lymph % (Auto) 9.0 Wolfe % (Auto) 4.9 Eos % (Auto) 1.5 Baso % (Auto) 0.2 Neut # (Auto) 15.2 H Lymph # (Auto) 1.6 Wolfe # (Auto) 0.9 Eos # (Auto) 0.3 Baso # (Auto) 0.0 WBC Differential . Diff Scan Auto diff confirmed Differential Comment . Platelet Estimate Normal Platelet Morphology Normal Sodium 141 Potassium 4.2 D Chloride 112 H D Carbon Dioxide 18.3 L Anion Gap 11 BUN 36 H Creatinine 1.84 H Estimated GFR 32 L Random Glucose 88 Calcium 8.2 L Total Bilirubin 0.4 AST 118 H ALT 133 H Alkaline Phosphatase 218 H Total Protein 6.8 Albumin 2.0 L Lipase 200 Hepatitis A IgM Ab Nonreactive Hep Bs Antigen Nonreactive Hep B Core IgM Ab Nonreactive Hep C IgG Ab Reactive H 06/16/18 06/16/18 07:57 07:57 WBC 10.5 RBC 3.63 L Hgb 11.2 L Hct 33.1 L MCV 91.0 MCH 30.8 MCHC 33.8 RDW 14.7 Plt Count 255 MPV 8.5 Prelim Diff (Auto) Neut % (Auto) 69.9 Lymph % (Auto) 17.7 Wolfe % (Auto) 9.1 H Eos % (Auto) 2.9 Baso % (Auto) 0.4 Neut # (Auto) 7.4 Lymph # (Auto) 1.9 Wolfe # (Auto) 1.0 H Eos # (Auto) 0.3 Baso # (Auto) 0.0 WBC Differential . Diff Scan Differential Comment Auto diff final Platelet Estimate Platelet Morphology Sodium 141 Potassium 4.1 Chloride 111 H Carbon Dioxide 20.9 L Anion Gap 9 BUN 25 H Creatinine 1.63 H Estimated GFR 37 L Random Glucose 69 L Calcium 7.8 L Total Bilirubin 0.5 AST 60 H ALT 89 H Alkaline Phosphatase 138 H Total Protein 6.0 L D Albumin 1.7 L Lipase Hepatitis A IgM Ab Hep Bs Antigen Hep B Core IgM Ab Hep C IgG Ab - Imaging Impressions Abdomen/Pelvis CT 06/15/18 00:00 CONCLUSION: 1. Tiny nonobstructing right renal calculus. 2. Mild anasarca and mild ascites. No bowel obstruction. 3. Trace pleural and pericardial fluid. 4. Previous cholecystectomy. Chest CT 06/15/18 00:00 CONCLUSION: 1. Mild dependent atelectasis in the lungs with trace pleural fluid. Minimal left basilar airspace disease. 2. No adenopathy. No acute bony abnormalities. Gallbladder Ultrasound 06/15/18 00:00 CONCLUSION: 1. The liver is enlarged, but parenchymal echotexture and echogenicity are within normal limits. 2. Nonvisualization of the gallbladder. 3. Trace ascites, which is a nonspecific finding. 4. Increased cortical echogenicity of the right kidney, suggesting medical renal disease. Assessment and Plan - Plan 32-year-old female with a history of current IVDU who last used Dilaudid yesterday presented to the ED with complaints of a 5 day fever. Sepsis, with bandemia, suspect endocarditis WBC 25.4, 27% bands, HR 111, Tmax 101.6, resolving Gram - bacteremia Ecoli UTI CXR neg CT chest/abd/pelvis no e/o septic emboli 2D echo neg for vegetation Lactic acid 2.1 -> 1.5 Blood cultures + GNR in 1/4 bottles. Follow until finalized. Repeat BCX with no growth x 1 day. white count now normal ID following, appreciate assistance Continue on IV Zosyn, d/c IV Vancomycin N/V, RUQ pain, resolved hx of excessive NSAID use hx of ulcers resume regular diet continue on Protonix and Carafate patient counselled on risks associated with NSAID use/abuse E Coli UTI Continue on Zosyn Acute kidney injury, creatinine 1.3, likely due to dehydration and sepsis Renal US shows medical renal dz creatinine improving, 1.91 -> 1.63 encourage po fluid intake Avoid nephrotoxins continue to monitor kidney function closely Hep C, untreated Transaminitis, suspect secondary to sepsis INR 1.1 LFTs trending down avoid hepatotoxic agents avoid alcohol patient will need to follow up with GI as outpatient Hypotension, asymptomatic BP improved continue to monitor BP IVDA, current, last used Dilaudid day prior to admission Cessation counseling given Monitor for withdrawals Hypokalemia resolved s/p repletion DVT prophylaxis: Lovenox Code Status: FULL Discussed Condition With: patient, nursing staff, Dr. Larsen, Dr. Ortiz Discharge Planning: Not ready for discharge. Await final blood culture results. Will need ID clearance.
--- NOTE | 2018-06-16 11:58 | ECHRPT ---
EXAM DATE: 06/16/2018 11:13 AM EDT AGE/SEX: 32 years / Female INDICATIONS: bilateral toe pain and numbness CLINICAL DATA: This is the patient's initial encounter. Patient reports that signs and symptoms have been present for 1 day and indicates a pain score of 1/10. MEDICAL/SURGICAL HISTORY: . iv drug abuse . tubal ligation, ankle surgery, intestinal surgery COMPARISON: No prior exams available for comparison. TECHNIQUE: Four-cuff ankle and brachial pressures were obtained. Pulse cuff waveform tracings of the ankles were recorded, and ankle-brachial indices were calculated. PRESSURES (mmHg): Brachial (arm) : RIGHT: IV SITE, LEFT: 93 Ankle : RIGHT: 134, LEFT: 132 HARI : RIGHT: 1.44, LEFT: 1.42 TBI : RIGHT: 1.26, LEFT: 1.20 FINDINGS: Pulsed-Cuff Waveform: There are good upstroke and a dicrotic downstroke of the tracings. Other: None. CONCLUSION: 1. Supernormal ankle-brachial indices which may reflect diffusely calcified vessels. This significan tly reduces the utility of ankle-brachial indices as a screening exam for peripheral arterial disease . Consider CTA examination if there is continued clinical concern. Electronically signed by: Antwon Del Cid MD 06/16/2018 11:57 AM EDT
[2018-06-16] MEDS ORDERED: Pharmacy Ordered Lab Info OTHER ONE (19:45)
[2018-06-17] MEDS: Piperacil/Tazo 3.375 GM Premix 50 ML IV.SIG SCH ×3 (00:05→13:47)
[2018-06-17] MEDS: Heparin - SQ 10,000 UNITS/ML Vial SQ SCH ×2 (05:43→13:52)
--- NOTE | 2018-06-17 07:49 | P.PN ---
Subjective Interval history: Follow-up on patient with history of IV drug use, fever times 5 days. Patient seen and examined. Patient states she feels great. She is hoping she can be discharged home. She lost her IV access last night. She denies any fever or chills. She denies any chest pain or dyspnea. She denies any nausea, vomiting or abdominal pain. She has good appetite. Physical Exam Vital signs: Vital Signs 06/16/18 08:00 06/16/18 08:03 06/16/18 11:10 Temperature 97.8 F Pulse Rate 58 L 52 L 40 L Respiratory Rate 16 Blood Pressure 109/56 L Pulse Oximetry 99 06/16/18 12:00 06/16/18 12:06 06/16/18 16:00 Temperature 98.3 F 97.1 F L Pulse Rate 54 L 46 L 54 L Respiratory Rate 16 16 Blood Pressure 109/60 135/84 Pulse Oximetry 98 100 06/16/18 20:00 06/16/18 23:23 06/17/18 00:00 Temperature 98.4 F Pulse Rate 63 55 L 67 Respiratory Rate 18 Blood Pressure 154/80 H Pulse Oximetry 97 06/17/18 04:00 06/17/18 04:41 Temperature 98.7 F Pulse Rate 51 L 59 L Respiratory Rate 18 Blood Pressure 124/72 Pulse Oximetry 96 Intake & Output 06/16/18 06/17/18 06/17/18 18:59 06:59 18:59 Intake Total 1480 / 1480 353 / 353 Balance 1480 / 1480 353 / 353 Weight 69.4 kg Intake: IV 50 / 50 353 / 353 Zosyn 3.375 GM Premix 50 ML @ 50 / 50 100 mls/hr IV.SIG Q6H [facility] Rx#: [id number] Oral 1430 / 1430 Other: # Voids 6 1 Date of Last Bowel Movement 06/14/18 06/16/18 # Bowel Movements 0 Narrative: GENERAL: Well-developed well-nourished female, in no acute distress. Awake and alert. Sitting up in bed. SKIN: Warm and dry. No generalized rash. HEENT: Atraumatic. Normocephalic. Pupils equal and round. No scleral icterus. No injection or drainage. No nasal bleeding or discharge. Mucous membranes pink and moist. NECK: Trachea midline. CARDIOVASCULAR: Regular rate and rhythm. No murmur auscultated. RESPIRATORY: No accessory muscle use. Clear to auscultation. Breath sounds equal bilaterally. GASTROINTESTINAL: Abdomen soft, nondistended, nontender to palpation. +BS. MUSCULOSKELETAL: Extremities without clubbing, cyanosis, or edema. No obvious deformities. NEUROLOGICAL: Awake and alert. No obvious cranial nerve deficits. Motor grossly within normal limits. Able to move all extremities spontaneously. Normal speech. PSYCHIATRIC: Appropriate mood and affect; insight and judgment poor. Results - Labs CBC & Chem 7: 06/16/18 07:57 06/17/18 08:57 Laboratory Results - last 24 hr 06/16/18 06/16/18 06/16/18 07:57 07:57 21:07 WBC 10.5 RBC 3.63 L Hgb 11.2 L Hct 33.1 L MCV 91.0 MCH 30.8 MCHC 33.8 RDW 14.7 Plt Count 255 MPV 8.5 Neut % (Auto) 69.9 Lymph % (Auto) 17.7 [place] % (Auto) 9.1 H Eos % (Auto) 2.9 Baso % (Auto) 0.4 Neut # (Auto) 7.4 Lymph # (Auto) 1.9 [place] # (Auto) 1.0 H Eos # (Auto) 0.3 Baso # (Auto) 0.0 WBC Differential . Differential Comment Auto diff final Sodium 141 Potassium 4.1 Chloride 111 H Carbon Dioxide 20.9 L Anion Gap 9 BUN 25 H Creatinine 1.63 H Estimated GFR 37 L Random Glucose 69 L Calcium 7.8 L Total Bilirubin 0.5 AST 60 H ALT 89 H Alkaline Phosphatase 138 H Total Protein 6.0 L D Albumin 1.7 L Vancomycin Trough 7.2 Microbiology 06/15/18 15:00 Blood - Peripheral Aerobic Blood Culture - Preliminary No growth in 1 day 06/15/18 15:00 Blood - Peripheral Anaerobic Blood Culture - Preliminary No growth in 1 day 06/15/18 12:55 Blood - Peripheral Aerobic Blood Culture - Preliminary No growth in 1 day 06/15/18 12:55 Blood - Peripheral Anaerobic Blood Culture - Preliminary No growth in 1 day - Imaging Impressions Extremity Arterial Study 06/15/18 00:00 CONCLUSION: 1. Supernormal ankle-brachial indices which may reflect diffusely calcified vessels. This significantly reduces the utility of ankle-brachial indices as a screening exam for peripheral arterial disease. Consider CTA examination if there is continued clinical concern. Assessment and Plan - Plan 32-year-old female with a history of current IVDU who last used Dilaudid yesterday presented to the ED with complaints of a 5 day fever. Sepsis, with bandemia, suspect endocarditis WBC 25.4, 27% bands, HR 111, Tmax 101.6, resolved Ecoli bacteremia Ecoli UTI CXR neg CT chest/abd/pelvis no e/o septic emboli 2D echo neg for vegetation Lactic acid 2.1 -> 1.5 Blood cultures + GNR in 1/4 bottles. Repeat BCX with no growth x 2 days. white count now normal ID following, appreciate assistance. D/C IV Zosyn. Cleared for discharge on po Levaquin. N/V, RUQ pain, resolved hx of excessive NSAID use hx of ulcers Suspect NSAID induced gastritis tolerating regular diet continue on Protonix and Carafate patient counselled on risks associated with NSAID use/abuse E Coli UTI Continue on Zosyn Acute kidney injury, creatinine 1.3, likely due to dehydration and sepsis Renal US shows medical renal dz creatinine improving, 1.91 -> 1.58 encourage po fluid intake Avoid nephrotoxins continue to monitor kidney function closely Hep C, untreated Transaminitis, suspect secondary to sepsis INR 1.1 LFTs trending down avoid hepatotoxic agents avoid alcohol patient will need to follow up with GI as outpatient IVDA, current, last used Dilaudid day prior to admission Cessation counseling given Monitor for withdrawals Hypokalemia resolved s/p repletion DVT prophylaxis: Lovenox Code Status: FULL Discussed Condition With: patient, nursing staff, Dr. Larsen
[2018-06-17] MEDS: Sucralfate Liq 1 GM/10 ML UDC PO SCH ×2 (08:58→13:52)
[2018-06-17 09:29] VITALS: RESP 16; TEMP 97.8
[2018-06-17 09:57] LABS: Albumin 1.8 g/dL (3.4-5.0); Anion Gap 9 meq/L (5-15); Aspartate Aminotransferase 32 U/L (15-37); Blood Urea Nitrogen 17 mg/dL (7-18); Calcium 8.3 mg/dL (8.5-10.1); Carbon Dioxide 23.4 meq/L (21.0-32.0); Chloride 112 meq/L (98-107); Glomerular Filtration Rate 38 mL/min (>89); Glucose,Random 65 mg/dL (74-106); Potassium 4.5 meq/L (3.5-5.1); Sodium 144 meq/L (136-145)
[2018-06-17 09:59] LABS: Alanine Aminotransferase 71 U/L (10-53); Alkaline Phosphatase 136 U/L (45-117); Total Protein 6.4 g/dL (6.4-8.2)
[2018-06-17 12:29] VITALS: BP 129/78; PULSE 51; O2SAT 98
--- NOTE | 2018-06-17 13:54 | P.DS ---
Date of admission: 06/14/18 03:06 Primary care physician: No Primary Care Physician Attending physician on discharge: Kyle Larsen Anticipated date of discharge: 06/17/18 Brief History from admission: 32-year-old female with a history of IVDA presented to the ED with complaints of a 5 day fever. Patient states on Friday she started to have fevers and chills with associated nausea and vomiting. Patient is an IV drug abuser of Dilaudid, last dose was 5 PM prior to coming to the hospital. She states she does use it twice a day. She denies any associated chest pain, shortness of breath, dizziness or headaches. Patient update on day of discharge: Follow-up on patient with history of IV drug use, fever times 5 days. Patient seen and examined. Patient states she feels great. She is hoping she can be discharged home. She lost her IV access last night. She denies any fever or chills. She denies any chest pain or dyspnea. She denies any nausea, vomiting or abdominal pain. She has good appetite. DS: Diagnosis - Discharge Diagnosis (1) Sepsis Status: Acute (2) Bacteremia due to Escherichia coli Status: Acute (3) E. coli urinary tract infection Status: Acute (4) Hepatitis C Status: Acute (5) Transaminitis Status: Acute (6) IVDU (intravenous drug user) Status: Acute (7) Acute kidney injury Status: Acute (8) NSAID induced gastritis Status: Acute DS: Medications - Discharge Medications Prescriptions: levofloxacin [Levaquin] 750 mg PO DAILY #12 tab pantoprazole 40 mg PO DAILY #30 tab sucralfate 1 gm PO QID #1 bottle DS: Summary Hospital Course: Patient admitted with sepsis and bandemia. Started empirically on IV Zosyn and vancomycin. Patient was positive for E. coli in 1 out of 4 bottles. Urine culture grew E. coli. Seen in consultation by infectious disease. IV vancomycin was discontinued. 2D echocardiogram negative for vegetation. CT the chest, abdomen and pelvis did not reveal any evidence of septic emboli. Repeat blood cultures failed to show any growth. Patient developed complaints of nausea vomiting and right upper quadrant pain likely due to NSAID induced gastritis with a history of excessive ibuprofen use of 1600 mg twice a day. Patient tested positive for hepatitis C and was advised to follow-up with GI as an outpatient. Patient had acute kidney injury likely secondary to dehydration and sepsis that improved with IV fluid hydration and treatment of her urinary tract infection. Renal ultrasound showed medical renal disease. Patient improved clinically. Patient was counseled multiple times regarding complete alcohol cessation as well as IV drug use. Patient was cleared from ID perspective for discharge to home on oral Levaquin. - Time Spent with Patient Total time spent providing and/or coordinating discharge services: Greater than 30 minutes - Quality: VTE Deep Vein Thrombosis/Pulmonary Embolism Present on Admission: No Exam Vital signs: Vital Signs 06/16/18 16:00 06/16/18 20:00 06/16/18 23:23 Temperature 97.1 F L 98.4 F Pulse Rate 54 L 63 55 L Respiratory Rate 16 18 Blood Pressure 135/84 154/80 H Pulse Oximetry 100 97 06/17/18 00:00 06/17/18 04:00 06/17/18 04:41 Temperature 98.7 F Pulse Rate 67 51 L 59 L Respiratory Rate 18 Blood Pressure 124/72 Pulse Oximetry 96 06/17/18 08:00 06/17/18 12:00 Temperature 97.8 F 97.8 F Pulse Rate 57 L 51 L Respiratory Rate 16 16 Blood Pressure 117/71 129/78 Pulse Oximetry 99 98 Intake & Output 06/16/18 06/17/18 06/17/18 18:59 06:59 18:59 Intake Total 1480 / 1480 353 / 353 Balance 1480 / 1480 353 / 353 Weight 69.4 kg Intake: IV 50 / 50 353 / 353 Zosyn 3.375 GM Premix 50 ML @ 50 / 50 100 mls/hr IV.SIG Q6H [facility] Rx#: [id number] Oral 1430 / 1430 Other: # Voids 6 1 Date of Last Bowel Movement 06/14/18 06/16/18 06/16/18 # Bowel Movements 0 Narrative: GENERAL: Well-developed well-nourished female, in no acute distress. Awake and alert. Sitting up in bed. SKIN: Warm and dry. No generalized rash. HEENT: Atraumatic. Normocephalic. Pupils equal and round. No scleral icterus. No injection or drainage. No nasal bleeding or discharge. Mucous membranes pink and moist. NECK: Trachea midline. CARDIOVASCULAR: Regular rate and rhythm. No murmur auscultated. RESPIRATORY: No accessory muscle use. Clear to auscultation. Breath sounds equal bilaterally. GASTROINTESTINAL: Abdomen soft, nondistended, nontender to palpation. +BS. MUSCULOSKELETAL: Extremities without clubbing, cyanosis, or edema. No obvious deformities. NEUROLOGICAL: Awake and alert. No obvious cranial nerve deficits. Motor grossly within normal limits. Able to move all extremities spontaneously. Normal speech. PSYCHIATRIC: Appropriate mood and affect; insight and judgment poor. Results Procedures completed during hospitalization: None Labs on day of discharge: Labs from last 24 hours 06/17/18 06/16/18 08:57 21:07 Sodium 144 Potassium 4.5 Chloride 112 H Carbon Dioxide 23.4 Anion Gap 9 BUN 17 Creatinine 1.58 H Estimated GFR 38 L Random Glucose 65 L Calcium 8.3 L Total Bilirubin 0.3 AST 32 ALT 71 H Alkaline Phosphatase 136 H Total Protein 6.4 Albumin 1.8 L Vancomycin Trough 7.2 Preliminary micro results at discharge 06/15/18 15:00 Aerobic Blood Culture - Preliminary Blood - Peripheral No growth in 2 days Anaerobic Blood Culture - Preliminary No growth in 2 days 06/15/18 12:55 Aerobic Blood Culture - Preliminary Blood - Peripheral No growth in 2 days Anaerobic Blood Culture - Preliminary No growth in 2 days - Impressions ITS Impressions Abdomen/Bladder Ultrasound 06/14/18 00:00 CONCLUSION: 1. Sonographic findings consistent with underlying medical renal disease. No obstruction. Chest X-Ray 06/14/18 00:00 CONCLUSION: Negative examination. Abdomen/Pelvis CT 06/15/18 00:00 CONCLUSION: 1. Tiny nonobstructing right renal calculus. 2. Mild anasarca and mild ascites. No bowel obstruction. 3. Trace pleural and pericardial fluid. 4. Previous cholecystectomy. Chest CT 06/15/18 00:00 CONCLUSION: 1. Mild dependent atelectasis in the lungs with trace pleural fluid. Minimal left basilar airspace disease. 2. No adenopathy. No acute bony abnormalities. Extremity Arterial Study 06/15/18 00:00 CONCLUSION: 1. Supernormal ankle-brachial indices which may reflect diffusely calcified vessels. This significantly reduces the utility of ankle-brachial indices as a screening exam for peripheral arterial disease. Consider CTA examination if there is continued clinical concern. Gallbladder Ultrasound 06/15/18 00:00 CONCLUSION: 1. The liver is enlarged, but parenchymal echotexture and echogenicity are within normal limits. 2. Nonvisualization of the gallbladder. 3. Trace ascites, which is a nonspecific finding. 4. Increased cortical echogenicity of the right kidney, suggesting medical renal disease. Discharge Plan - Discharge Disposition Patient Disposition: 01 Discharge Home - Discharge Condition Condition: Stable - Discharge Order Discharge Orders: Discharge Order (Routine); Ordered 06/17/18 Ordered By: Terri Tanner - Discharge Details Anticipated Discharge Date: 06/17/18 - Physicians Team Primary Care Provider: Primary Care Laura Huerta Attending Provider: Kyle Larsen Other Providers: Alessia Ortiz MD - Rxs /Orders / Referrals /Forms Prescriptions: New levofloxacin [Levaquin] 750 mg Tablet 750 mg PO DAILY Qty: 12 RF: 0 pantoprazole 40 mg Tablet,Delayed Release (Dr/Ec) 40 mg PO DAILY Qty: 30 RF: 0 sucralfate 100 mg/mL Suspension 1 gm PO QID Qty: 1 RF: 0 Continue No Known Home Medications Ambulatory Orders / Order Sets / DME: Basic Metabolic Panel (Routine) Timeframe: 3 Days Location: Determined by Patient Ordered By: Terri Tanner Referrals: DR PONCE/[place], [place] [Other] - See Instructions ( Please call the physician's office to book the appointment to be seen within [].) [facility] [Outside] - See Instructions ( Please call the physician' s office to book the appointment to be seen within one week. Newly diagnosed Hep C) Primary Care Laura Huerta [Primary Care Provider] - See Instructions (PLEASE CALL JOHNN[facility] TO SCHEDULE APPT. [id number] [facility] ) - Discharge Instructions Patient Printed Instructions: Sepsis (GEN) - Post Discharge Care Plan Care Plan Goals: Your Health Problems: E Coli Urinary Tract Infection E Coli Bacteremia Sepsis Hepatitis C Do not drink any alcohol Do not use IV drugs or another illicit drugs Goals to Promote Your Health: * To prevent worsening of your condition * To maintain your health at the optimal level Directions to Meet Your Goals: * Take your medications as prescribed * Follow your dietary instruction * Follow activity as directed * Keep your appointments as scheduled * Schedule an appointment with [facility]ist to discuss Hep C treatment * Take your immunizations and boosters as scheduled * If your symptoms worsen call your PCP * If no PCP go to Urgent Care or Emergency Room Smoking is dangerous to your health. Avoid second hand smoke. You may reach the 24-hour crisis hotline for domestic abuse at .
[2018-06-17] MEDS ORDERED: levoFLOXacin 750 MG Tablet PO ONE (14:00)
--- NOTE | 2018-06-17 14:22 | P.PNID ---
Subjective Remarks: Ms. Ghotra is a 32-year-old female with past medical history significant for IV drug abuse who presented to the emergency room and felt complaints of a 5 day fever. Patient reports that she started having fevers and chills associated with nausea approximately 5 days back. Patient reports that she continues to use IV Dilaudid and the last dose was a few hours prior to her hospitalization. She reports that she uses intravenous Dilaudid at least twice a day. Patient denies any prior history of endocarditis or any other distant infection like epidural abscess or discitis Patient denies any prior history of knee effusions. Patient denies any chest pain shortness of breath dizziness or headaches. Patient denies any visual changes. Infectious diseases consulted for evaluation and management of possible sepsis and endocarditis. At the time of my evaluation patient is on a regular floor. Sepsis workup including blood cultures and urine cultures were drawn. At the time of my dictation of this note later in the evening the blood cultures are now positive for gram-negative rods in blood as well as urine. Overnight events reviewed. No fever No rash No diarrhea feels better Antibiotics: Zosyn IV Lines: Line sites look okay Past Medical History: Reviewed. Allergies/Adverse Reactions: Allergies No Known Allergies Allergy (Unverified 06/13/18 17:20) Objective Vital Signs 06/16/18 16:00 06/16/18 20:00 06/16/18 23:23 Temperature 97.1 F L 98.4 F Pulse Rate 54 L 63 55 L Respiratory Rate 16 18 Blood Pressure 135/84 154/80 H Pulse Oximetry 100 97 06/17/18 00:00 06/17/18 04:00 06/17/18 04:41 Temperature 98.7 F Pulse Rate 67 51 L 59 L Respiratory Rate 18 Blood Pressure 124/72 Pulse Oximetry 96 06/17/18 08:00 06/17/18 12:00 Temperature 97.8 F 97.8 F Pulse Rate 57 L 51 L Respiratory Rate 16 16 Blood Pressure 117/71 129/78 Pulse Oximetry 99 98 Intake & Output 06/16/18 06/17/18 06/17/18 18:59 06:59 18:59 Intake Total 1480 / 1480 353 / 353 Balance 1480 / 1480 353 / 353 Weight 69.4 kg Intake: IV 50 / 50 353 / 353 Zosyn 3.375 GM Premix 50 ML @ 50 / 50 100 mls/hr IV.SIG Q6H [facility] Rx#: [id number] Oral 1430 / 1430 Other: # Voids 6 1 Date of Last Bowel Movement 06/14/18 06/16/18 06/16/18 # Bowel Movements 0 06/15/18 15:00 Blood - Peripheral Aerobic Blood Culture - Preliminary No growth in 2 days 06/15/18 15:00 Blood - Peripheral Anaerobic Blood Culture - Preliminary No growth in 2 days 06/15/18 12:55 Blood - Peripheral Aerobic Blood Culture - Preliminary No growth in 2 days 06/15/18 12:55 Blood - Peripheral Anaerobic Blood Culture - Preliminary No growth in 2 days Lab - Hematology Results 06/15/18 06/16/18 12:55 07:57 WBC 10.5 RBC 3.63 L Hgb 11.2 L Hct 33.1 L MCV 91.0 MCH 30.8 MCHC 33.8 RDW 14.7 Plt Count 255 MPV 8.5 Neut % (Auto) 69.9 Lymph % (Auto) 17.7 [place] % (Auto) 9.1 H Eos % (Auto) 2.9 Baso % (Auto) 0.4 Neut # (Auto) 7.4 Lymph # (Auto) 1.9 [place] # (Auto) 1.0 H Eos # (Auto) 0.3 Baso # (Auto) 0.0 WBC Differential . . Diff Scan Auto diff confirmed Differential Comment Auto diff final Platelet Estimate Normal Platelet Morphology Normal Lab - Chemistry Results 06/16/18 06/17/18 07:57 08:57 Sodium 141 144 Potassium 4.1 4.5 Chloride 111 H 112 H Carbon Dioxide 20.9 L 23.4 Anion Gap 9 9 BUN 25 H 17 Creatinine 1.63 H 1.58 H Estimated GFR 37 L 38 L Random Glucose 69 L 65 L Calcium 7.8 L 8.3 L Total Bilirubin 0.5 0.3 AST 60 H 32 ALT 89 H 71 H Alkaline Phosphatase 138 H 136 H Total Protein 6.0 L D 6.4 Albumin 1.7 L 1.8 L Imaging: ITS Impressions Abdomen/Bladder Ultrasound 06/14/18 00:00 CONCLUSION: 1. Sonographic findings consistent with underlying medical renal disease. No obstruction. Chest X-Ray 06/14/18 00:00 CONCLUSION: Negative examination. Abdomen/Pelvis CT 06/15/18 00:00 CONCLUSION: 1. Tiny nonobstructing right renal calculus. 2. Mild anasarca and mild ascites. No bowel obstruction. 3. Trace pleural and pericardial fluid. 4. Previous cholecystectomy. Chest CT 06/15/18 00:00 CONCLUSION: 1. Mild dependent atelectasis in the lungs with trace pleural fluid. Minimal left basilar airspace disease. 2. No adenopathy. No acute bony abnormalities. Extremity Arterial Study 06/15/18 00:00 CONCLUSION: 1. Supernormal ankle-brachial indices which may reflect diffusely calcified vessels. This significantly reduces the utility of ankle-brachial indices as a screening exam for peripheral arterial disease. Consider CTA examination if there is continued clinical concern. Gallbladder Ultrasound 06/15/18 00:00 CONCLUSION: 1. The liver is enlarged, but parenchymal echotexture and echogenicity are within normal limits. 2. Nonvisualization of the gallbladder. 3. Trace ascites, which is a nonspecific finding. 4. Increased cortical echogenicity of the right kidney, suggesting medical renal disease. Physical Exam: GENERAL: Well-nourished well-developed, not in acute distress SKIN: Track hilario noted. Multiple tattoos noted. HEAD: Atraumatic. Normocephalic. No temporal or scalp tenderness. EYES: Pupils equal round and reactive. Scleral icterus. No injection or drainage. No petechia ENT: Nothing abnormal detected NECK: Trachea midline. Supple, nontender, no meningeal signs. CARDIOVASCULAR: HS audible. RESPIRATORY: Clear to auscultation bilaterally. GASTROINTESTINAL: Abdomen soft nontender. MUSCULOSKELETAL: Extremities without clubbing, cyanosis. NEUROLOGICAL: Alert oriented 3. Nonfocal. Psych cooperative IV line sites ok. Assessment and Plan - Plan Sepsis E.coli bacteremia E.colirod UTI versus translocation Intravenous drug abuse with Dilaudid Recs: continue Zosyn IV while in hospital Ok to dc home on oral levaquin to complete 14 day course. Case discussed with Terri FRANCO Will sign off please call back if any change in clinical condition or questions.
== END 2018-06-17 14:54 | disposition home or self-care (01) ==
LOC: NEDDLT 17:12 → N05 06-14 03:06
PROVIDERS: ADMIT Hospitalist; ATTEND Hospitalist

== ENCOUNTER 2018-09-16 00:19 | Inpatient (IN) ==
[2018-09-16] MEDS ORDERED: Vancomycin Consult Pharmacy OTHER PRN (04:57)
[2018-09-16] MEDS ORDERED: Bisacodyl 10 MG Supp RECTAL PRN (04:57)
[2018-09-16] MEDS ORDERED: Vancomycin Inj 1,000 MG in Sodium Chlor 0.9% Inj 250 ML IV.SIG SCH (08:00)
[2018-09-16] MEDS: Sod Chloride 0.9% Inj 1,000 ML IV.CONT SCH ×2 (09:57→17:23)
[2018-09-16] MEDS: Acetaminophen 325 MG Tablet PO PRN ×3 (10:04→22:59)
[2018-09-16] MEDS: Piperacil/Tazo 3.375 GM Premix 3.375 GM/50 ML PIGGYBACK IV.SIG SCH ×4 (11:16→23:04)
--- NOTE | 2018-09-16 13:09 | P.HPIM ---
History of Present Illness Primary Care Physician: No Primary Care Physician Chief Complaint: back pain,chest pain History of Present Illness: 33 yo F with h/o IVDU( injects dilaudid pills and subutex), Reports being reports being clean up to March this year, then relapsed.presented with 2 day h/o back pain, chest pain. Pain said to be in the mid back, sharp. she also reports pain all over her chest. She denies palpitations or diaphoresis. Reports fever. No shortness of breath. Reports dysuria intermittently for the last 2 months. no frequency. Patient has been injecting dilaudid and subutex, last use yesterday. denies cocaine use. She says she relapsed because of her living situation previously but now has a boyfriend who does not use drugs and is helping her as she tries to quit. ROS--she has a headache, other than that, ROS is negative. On presentation to ER, patient noted to be febrile at 100.6, other vitals stable , labs with relative neutrophilia 89%, mild hypokalemia, elevated liver enzymes( essentially unchanged compared to previous),negative troponin urinalysis positive for nitrite and LE.ER physician concerned for endocarditis. Patient started on Vanc/Zosyn in ER admitted to the medical floor. [facility] Medical History Medical History IV drug abuse (Acute) Patient denies medical problems (Acute) Surgical History Surgical History H/O tubal ligation (Acute) History of ankle surgery (Acute) History of intestinal surgery (Acute) Family History Family History Other Family history normal Social History Social History Substance History: Active Abuse Second Hand Smoke Exposure: Yes Smoking Status: Never smoker Tobacco Type: Cigarettes How Often Do You Have a Drink Containing Alcohol: Never Substance Abuse Detail Other: Substance Use Type Other:: Buprenorphine tablets Substance Use Status: Active Route Used Substance Abuse: Intravenously Substance Frequency: Daily Substance Abuse Comment: Patient crushes Buprenorphine tablets dilutes and administers non-aseptic IV Reason for Use: Get High Immunization History Tetanus Immunization Year if Known: 2014 Medications and Allergies Allergies Allergy/AdvReac Type Severity Reaction Status Date / Time No Known Allergies Allergy Verified 09/16/18 05:18 Home Medications Medication Instructions Recorded Confirmed Type No Known Home Medications 06/13/18 09/16/18 History Active Medications: Active Medications Acetaminophen (Tylenol) 650 mg PO Q4H PRN PRN Reason: Temp > 100.4 Last Admin: 09/16/18 10:04 Dose: 650 mg Al Hydroxide/Mg Hydroxide (Milk Of Magnesia Liq) 30 ml PO Q12H PRN PRN Reason: Mild Constipation Bisacodyl (Dulcolax Supp) 10 mg RECTAL DAILY PRN PRN Reason: SEVERE CONSITIPATION Sodium Chloride (Ns Inj) 1,000 mls @ 100 mls/hr IV.CONT .Q10H [facility] Last Admin: 09/16/18 09:57 Dose: 100 mls/hr Piperacillin/Tazobactam/Dextrose (Zosyn 3.375 Gm Premix) 3.375 gm in 50 mls @ 100 mls/hr IV.SIG Q6H [facility] Last Admin: 09/16/18 11:44 Dose: 100 mls/hr Vancomycin HCl 1,000 mg/ (Sodium Chloride) 250 mls @ 250 mls/hr IV.SIG Q12H [facility] Lactulose (Lactulose Liq) 30 ml PO DAILY PRN PRN Reason: SEVERE CONSITIPATION Miscellaneous Information ([facility] Ordered Lab Info) 0 each OTHER ONCE ONE Stop: 09/17/18 12:46 Ondansetron HCl (Zofran Inj) 4 mg IV.PUSH Q6H PRN PRN Reason: NAUSEA OR VOMITING Pharmacy Profile Note (Vancomycin Consult Pharmacy) 1 each OTHER UNSCH PRN PRN Reason: Pharmacy to dose Sennosides (Senokot) 17.2 mg PO Q12H PRN PRN Reason: Moderate Constipation Sodium Chloride (Ns Flush) 2 ml IV.FLUSH BID [facility] Last Admin: 09/16/18 10:05 Dose: 2 ml Sodium Chloride (Ns Flush) 2 ml IV.FLUSH PRN PRN PRN Reason: FLUSH AFTER USING IV ACCESS Physical Exam Vital signs: Last Vital Signs Temp 97.9 F 09/16/18 12:00 Pulse 66 09/16/18 12:00 Resp 18 09/16/18 12:00 BP 144/77 H 09/16/18 12:00 Pulse Ox 98 09/16/18 12:00 Intake & Output 09/14/18 09/15/18 09/16/18 09/17/18 06:59 06:59 06:59 06:59 Weight 65.9 kg Results Labs CBC & Chem 7: 09/17/18 06:00 09/17/18 06:00 Caprini VTE Risk Assessment Caprini VTE Risk Assessment: No/Low Risk (score <= 1) Caprini Risk Assessment Model: Point Value = 1 Point Value = 2 Point Value = 3 Point Value = 5 Age 41-60 Minor surgery BMI > 25 kg/m2 Swollen legs Varicose veins or History of unexplained or recurrent spontaneous Oral contraceptives or hormone replacement Sepsis (< 1 month) Serious lung disease, including pneumonia (< 1 month) Abnormal pulmonary function Acute myocardial infarction Congestive heart failure (< 1 month) History of inflammatory bowel disease Medical patient at bed rest Age 61-74 Arthroscopic surgery Major open surgery (> 45 min) Laparoscopic surgery (> 45 min) Malignancy Confined to bed (> 72 hours) Immobilizing plaster cast Central venous access Age >= 75 History of VTE Family history of VTE Factor V Leiden Prothrombin [id number] Lupus anticoagulant Anticardiolipin antibodies Elevated serum homocysteine Heparin-induced thrombocytopenia Other congenital or acquired thrombophilia Stroke (< 1 month) Elective arthroplasty Hip, pelvis, or leg fracture Acute spinal cord injury (< 1 month) Prophylaxis Regimen: Total Risk Factor Score Risk Level Prophylaxis Regimen 0-1 Low Early ambulation 2 Moderate Order ONE of the following: *Sequential Compression Device (SCD) *Heparin 5000 units SQ BID 3-4 Higher Order ONE of the following medications: *Heparin 5000 units SQ TID *Enoxaparin/Lovenox 40 mg SQ daily (WT < 150 kg, CrCl > 30 mL/min) *Enoxaparin/Lovenox 30 mg SQ daily (WT < 150 kg, CrCl > 10-29 mL/min) *Enoxaparin/Lovenox 30 mg SQ BID (WT < 150 kg, CrCl > 30 mL/min) AND/OR *Sequential Compression Device (SCD) 5 or more Highest Order ONE of the following medications: *Heparin 5000 units SQ TID (Preferred with Epidurals) *Enoxaparin/Lovenox 40 mg SQ daily (WT < 150 kg, CrCl > 30 mL/min) *Enoxaparin/Lovenox 30 mg SQ daily (WT < 150 kg, CrCl > 10-29 mL/min) *Enoxaparin/Lovenox 30 mg SQ BID (WT < 150 kg, CrCl > 30 mL/min) AND *Sequential Compression Device (SCD) Assessment and Plan Plan 33 yo F with h/o IVDU( injects dilaudid pills and subutex), presenting with back pain and chest pain, dysuria. Back pain- given point tenderness and h/o ivdu, concerned for abscess. obtain MRI for further eval. keep on Vanc/Zosyn for now, f/up blood cultures. Chest pain-likely non cardiac, troponin negative, ECG without acute changes. repeat troponin. Dysuria--likely UTI given +ve urinalysis. f/up culture,Zosyn should cover for now. IVDU-dilaudid/subutex from the streets--patient trying to quit. keep on low dose methadone while inhouse to mitigate withdrawal. Patient plans to follow up at a walk in Methadone/Suboxone clinic as an outpatient. Hypokalemia--replete as needed. DVT ppx- low risk, ambulate H&P: Quality VTE Deep Vein Thrombosis/Pulmonary Embolism Present on Admission: No
[2018-09-16] MEDS: Vancomycin Inj 1,000 MG in Sodium Chlor 0.9% Inj 250 ML IV.SIG SCH (13:36)
--- NOTE | 2018-09-16 18:05 | ECHRPT ---
Indication: Sepsis Possible Endocarditis CONCLUSIONS The left ventricular systolic function is normal with an estimated ejection fraction in the range of 55-60%. Trace mitral valve regurgitation. There is trace tricuspid valve regurgitation. No endocarditis noted BP: / HR: Rhythm: MEASUREMENTS (Male / Female) Normal Values Technical Quality:Fair 2D ECHO LV Diastolic Diameter PLAX 5.1 cm 4.2 - 5.9 / 3.9 - 5.3 cm LV Systolic Diameter PLAX 2.4 cm IVS Diastolic Thickness 0.9 cm 0.6 - 1.0 / 0.6 - 0.9 cm LVPW Diastolic Thickness 0.9 cm 0.6 - 1.0 / 0.6 - 0.9 cm LV Relative Wall Thickness 0.4 RV Internal Dim ED PLAX 2.1 cm LVOT Diameter 2.0 cm Aortic Root Diameter 2.6 cm LA Systolic Diameter LX 3.1 cm 3.0 - 4.0 / 2.7 - 3.8 cm DOPPLER AV Peak Velocity 160.0 cm/s AV Peak Gradient 10.2 mmHg LVOT Peak Velocity 128.0 cm/s LVOT Peak Gradient 6.6 mmHg AV Area Cont Eq pk 2.5 cm Mitral E Point Velocity 71.6 cm/s Mitral A Point Velocity 80.5 cm/s Mitral E to A Ratio 0.9 LV E' Lateral Velocity 10.5 cm/s Mitral E to LV E' Lateral Ratio 6.8 LV E' Septal Velocity 7.6 cm/s Mitral E to LV E' Septal Ratio 9.4 TR Peak Velocity 171.0 cm/s TR Peak Gradient 11.7 mmHg Right Atrial Pressure 10.0 mmHg Pulmonary Artery Systolic Pressu 21.7 mmHg Right Ventricular Systolic Press 21.7 mmHg PV Peak Velocity 107.0 cm/s PV Peak Gradient 4.6 mmHg FINDINGS LEFT VENTRICLE Normal left ventricular size. The left ventricular systolic function is normal with an estimated ejection fraction in the range of 55-60%. Wall thickness is normal. No regional wall motion abnormalities are present. RIGHT VENTRICLE Normal right ventricular size and systolic function. LEFT ATRIUM The left atrial size is normal. RIGHT ATRIUM The right atrial size is normal. ATRIAL SEPTUM Normal atrial septal thickness without atrial level shunting by limited color doppler interrogation. AORTA The aortic root and proximal ascending aorta are normal in size on limited imaging. MITRAL VALVE Structurally normal mitral valve. No mitral valve stenosis. Trace mitral valve regurgitation. AORTIC VALVE Trileaflet aortic valve. No aortic valve stenosis or regurgitation. TRICUSPID VALVE Structurally normal tricuspid valve. There is trace tricuspid valve regurgitation. No tricuspid valve stenosis. PULMONARY VALVE No pulmonary valve regurgitation or stenosis. VESSELS The inferior vena cava is normal in size. PERICARDIUM No pericardial effusion. Bola Marcelo DO (Electronically Signed) Final Date:16 September 2018 18:04
[2018-09-16] MEDS: Methadone 10 MG Tablet PO SCH (21:02)
[2018-09-17] MEDS ORDERED: Ibuprofen 600 MG Tablet PO ONE
[2018-09-17] MEDS: Vancomycin Inj 1,000 MG in Sodium Chlor 0.9% Inj 250 ML IV.SIG SCH ×3 (01:19→23:30)
[2018-09-17] MEDS: Sod Chloride 0.9% Inj 1,000 ML IV.CONT SCH ×3 (03:27→20:48)
[2018-09-17] MEDS: Piperacil/Tazo 3.375 GM Premix 3.375 GM/50 ML PIGGYBACK IV.SIG SCH ×3 (05:31→17:27)
[2018-09-17 06:24] LABS: Eos % (Auto) 0.8 % (0.0-4.0); Hematocrit 36.3 % (35.0-46.0); Lymph # (Auto) 1.2 th/mm3 (1.0-4.8); Lymph % (Auto) 27.7 % (9.0-44.0); Mean Corpuscular HGB Conc 33.1 % (32.0-36.0); Mean Corpuscular Hemoglobin 30.1 pg (27.0-34.0); Mean Corpuscular Volume 91.1 fL (80.0-100.0); Mean Platelet Volume 7.3 fL (7.0-11.0); Mono # (Auto) 0.3 th/mm3 (0.0-0.9); Mono % (Auto) 7.5 % (0.0-8.0); Neut # (Auto) 2.7 th/mm3 (1.8-7.7); Platelet Count 221 th/mm3 (150-450); Red Blood Count 3.99 mil/mm3 (4.00-5.30); Red Cell Distribution Width 12.9 % (11.6-17.2); White Blood Count 4.2 th/mm3 (4.0-11.0)
[2018-09-17 06:32] LABS: Potassium 3.6 meq/L (3.5-5.1)
[2018-09-17 06:35] LABS: Calcium 7.5 mg/dL (8.5-10.1)
[2018-09-17 06:36] LABS: Carbon Dioxide 23.1 meq/L (21.0-32.0)
[2018-09-17] MEDS: Methadone 10 MG Tablet PO SCH ×2 (08:34→20:47)
[2018-09-17] MEDS ORDERED: Pharmacy Ordered Lab Info OTHER ONE (12:45)
--- NOTE | 2018-09-17 14:32 | P.PNIM ---
Subjective Interval history: back pain improving. had a febrile spike 102.8 tmax. Physical Exam Vital signs: Last Vital Signs Temp 97.0 F L 09/17/18 12:00 Pulse 55 L 09/17/18 12:00 Resp 16 09/17/18 12:00 BP 139/75 09/17/18 12:00 Pulse Ox 99 09/17/18 12:00 Intake & Output 09/15/18 09/16/18 09/17/18 09/18/18 06:59 06:59 06:59 06:59 Intake Total 2700 / 2700 1000 / 1000 Balance 2700 / 2700 1000 / 1000 Weight 65.9 kg 66 kg Narrative: GENERAL: This is a well-nourished, well-developed patient, in no apparent distress. HEENT: not pale,anicteric CARDIOVASCULAR: Regular rate and rhythm without murmurs, gallops, or rubs. RESPIRATORY: Clear to auscultation. Breath sounds equal bilaterally. No wheezes , rales, or rhonchi. GASTROINTESTINAL: Abdomen soft, non-tender, nondistended. Normal active bowel sounds MUSCULOSKELETAL: Extremities without clubbing, cyanosis, or edema. NEURO: Alert & Oriented x4 to person, place, time, situation. Moves all ext x4 Results Labs CBC & Chem 7: 09/17/18 06:00 09/17/18 06:00 Assessment and Plan Plan 33 yo F with h/o IVDU( injects dilaudid pills and subutex), presenting with back pain and chest pain, dysuria. Back pain- given point tenderness and h/o ivdu, concerned for abscess. MRI thoracic spine negative for abscess. keep on Vanc/Zosyn. patient spiking high grade fever will obtain echo for eval for possible infective endocarditis. Chest pain-likely non cardiac, troponin negative, ECG without acute changes. repeat troponin. Dysuria--likely UTI given +ve urinalysis. f/up culture,Zosyn should cover for now. IVDU-dilaudid/subutex from the streets--patient trying to quit. keep on low dose methadone while inhouse to mitigate withdrawal. Patient plans to follow up at a walk in Methadone/Suboxone clinic as an outpatient. Hypokalemia--replete as needed. DVT ppx- low risk, ambulate Progress Note: Quality VTE Deep Vein Thrombosis/Pulmonary Embolism Present on Admission: No
[2018-09-17] MEDS ORDERED: Gadobutrol PF 7.5 MMOL/7.5 ML Vial (for RAD) IV.SIG ONE (16:27)
--- NOTE | 2018-09-17 16:43 | MR ---
EXAM DATE: 09/17/2018 4:36 PM EST AGE/SEX: 33 years / Female INDICATIONS: Patient complains of back pain. Evaluate for possible abscess. CLINICAL DATA: This is the patient's initial encounter. Patient reports that signs and symptoms have been present for 4 - 6 days and indicates a pain score of 9/10. MEDICAL/SURGICAL HISTORY: . Cholecystectomy. COMPARISON: No prior exams available for comparison. TECHNIQUE: Multiplanar, multisequence MRI of the thoracic spine was performed without and with 6.5 m l Gadavist (gadobutrol) contrast as a single exam dose. FINDINGS: Vertebrae: Normal vertebral body height. Homogeneous marrow signal. Alignment: Normal. Line discs: Well preserved and hydrated. There are no anterior extradural defects . Cord: Normal position and configuration. Post Contrast: No abnormal areas of enhancement are seen in the cord, dural or paraspinal regions. T1-T2: The thecal sac has a normal diameter. No evidence of disc bulge or protrusion. T2-T3: The thecal sac has a normal diameter. No evidence of disc bulge or protrusion. T3-T4: The thecal sac has a normal diameter. No evidence of disc bulge or protrusion. T4-T5: The thecal sac has a normal diameter. No evidence of disc bulge or protrusion. T5-T6: The thecal sac has a normal diameter. No evidence of disc bulge or protrusion. T6-T7: The thecal sac has a normal diameter. No evidence of disc bulge or protrusion. T7-T8: The thecal sac has a normal diameter. No evidence of disc bulge or protrusion. T8-T9: The thecal sac has a normal diameter. No evidence of disc bulge or protrusion. T9-T10: The thecal sac has a normal diameter. No evidence of disc bulge or protrusion. T10-T11: The thecal sac has a normal diameter. No evidence of disc bulge or protrusion. T11-T12: The thecal sac has a normal diameter. No evidence of disc bulge or protrusion. T12-L1: The thecal sac has a normal diameter. No evidence of disc bulge or protrusion. CONCLUSION: 1. Unremarkable examination with no evidence of abscess or abnormal enhancement. Electronically signed by: Jagdish White MD Board Certified Radiologist 09/17/2018 4:42 PM EST
[2018-09-18] MEDS: Piperacil/Tazo 3.375 GM Premix 3.375 GM/50 ML PIGGYBACK IV.SIG SCH ×4 (00:40→18:48)
[2018-09-18] MEDS: Vancomycin Inj 1,000 MG in Sodium Chlor 0.9% Inj 250 ML IV.SIG SCH ×3 (05:45→21:56)
[2018-09-18] MEDS: Sod Chloride 0.9% Inj 1,000 ML IV.CONT SCH ×2 (08:21→18:48)
[2018-09-18] MEDS: Methadone 10 MG Tablet PO SCH ×2 (08:21→21:56)
--- NOTE | 2018-09-18 09:05 | P.PNIM ---
Subjective Interval history: back pain has improved. feeling better compared to yesterday. Interval-blood culture prelim growing yeast in aerobic bottles. Physical Exam Vital signs: Last Vital Signs Temp 98.1 F 09/18/18 00:00 Pulse 66 09/18/18 00:00 Resp 16 09/18/18 08:54 BP 152/97 H 09/18/18 00:00 Pulse Ox 96 09/18/18 00:00 Intake & Output 09/16/18 09/17/18 09/18/18 09/19/18 06:59 06:59 06:59 06:59 Intake Total 2700 / 2700 4620 / 4620 300 / 300 Output Total 100 / 100 Balance 2700 / 2700 4520 / 4520 300 / 300 Weight 65.9 kg 66 kg 66.2 kg Narrative: GENERAL: This is a well-nourished, well-developed patient, in no apparent distress. HEENT: not pale,anicteric CARDIOVASCULAR: Regular rate and rhythm without murmurs, gallops, or rubs. RESPIRATORY: Clear to auscultation. Breath sounds equal bilaterally. No wheezes , rales, or rhonchi. GASTROINTESTINAL: Abdomen soft, non-tender, nondistended. Normal active bowel sounds MUSCULOSKELETAL: Extremities without clubbing, cyanosis, or edema. NEURO: Alert & Oriented x4 to person, place, time, situation. Moves all ext x4 Results Labs CBC & Chem 7: 09/17/18 06:00 09/17/18 06:00 Imaging Imaging: Impressions Thoracic Spine MRI 09/17/18 00:00 CONCLUSION: 1. Unremarkable examination with no evidence of abscess or abnormal enhancement. Assessment and Plan Plan 33 yo F with h/o IVDU( injects dilaudid pills and subutex), presenting with back pain and chest pain, dysuria. Back pain- given point tenderness and h/o ivdu, concerned for abscess. MRI thoracic spine negative for abscess. keep on Vanc/Zosyn. 2D ECHO unremarkable. Blood culture growing yeast--started on Micafungin pending type and sensitivities. will need JACINDA for eval for possible infective endocarditis, she will have to be transferred to the main hospital for this. Consult ID recs appreciated. Chest pain-resolved.likely non cardiac, troponin negative, ECG without acute changes. Dysuria--likely UTI given +ve urinalysis. culture growing contaminants,Zosyn should cover for now. IVDU-dilaudid/subutex from the streets--patient trying to quit. keep on low dose methadone while inhouse to mitigate withdrawal. Patient plans to follow up at a walk in Methadone/Suboxone clinic as an outpatient. Hypokalemia--replete as needed. DVT ppx- low risk, ambulate Progress Note: Quality VTE Deep Vein Thrombosis/Pulmonary Embolism Present on Admission: No
--- NOTE | 2018-09-18 13:35 | MB ---
cc: Shimon Morgan MD DATE: 09/18/2018 REQUESTING PHYSICIAN: Dr. Mulligan. REASON FOR CONSULTATION: Fungemia. HISTORY OF PRESENT ILLNESS: This is a 33-year-old white female, who is a user of IV drugs. The patient was seen in the emergency department on 09/16/2018 with chest pain. She was also complaining of fever as well. When she was evaluated in the emergency department, the temperature was 99.3 and heart rate was 100. White count was normal. The patient was subsequently complaining of back pain, chills, and fever as well. Blood cultures were drawn on 09/16/2018 and there was yeast in both sets. The patient had temperature spike to 102 degrees yesterday morning. A thoracic MRI was performed and there was no evidence of abscess or abnormal enhancement. Chest x-ray showed no acute cardiopulmonary disease. Consultation was requested because of the yeast in the blood. The patient states that she feels a lot better. The patient has been injecting Dilaudid and Suboxone intravenously. She denies current nausea or vomiting. PAST MEDICAL HISTORY: Intravenous drug abuse, history of tubal ligation, history of ankle surgery, history of intestinal surgery. The patient denies history of endocarditis. ALLERGIES: NO KNOWN DRUG ALLERGIES. MEDICATIONS: Micafungin, piperacillin/tazobactam, vancomycin, methadone. SOCIAL HISTORY: Denies tobacco. Denies alcohol. Positive IV drugs. FAMILY HISTORY: Noncontributory. REVIEW OF SYSTEMS: All systems have been reviewed and are negative, except for that which is mentioned in history of present illness. PHYSICAL EXAMINATION: GENERAL: This is a slender female, who is in no acute distress. She is awake, alert, and oriented. VITAL SIGNS: Temperature 97.6, BP 134/80, respirations 16, heart rate 58. HEENT: The head is atraumatic. Extraocular movements grossly intact. Pupils reactive to light. No icterus. Oropharynx: Moist mucosa without lesions. NECK: Supple without adenopathy. LUNGS: Clear breath sounds. HEART: Normal S1 and S2. No audible murmur. ABDOMEN: Bowel sounds present. Soft, no tenderness appreciated. RECTAL: Not performed. EXTREMITIES: No clubbing, no cyanosis or edema. SKIN: No rash. NEUROLOGIC: Nonfocal. PSYCHIATRIC: The patient is calm and cooperative. LABORATORY DATA: WBC 4.2, platelets 221, hemoglobin 12.0, 63% neutrophils, 27% lymphocytes. Creatinine 0.88. AST 86, ALT 134. IMPRESSION: 1. Fungemia in patient, who is an IV drug user. 2. Rule out endocarditis. RECOMMENDATIONS: 1. Continue micafungin. 2. Obtain JACINDA to evaluate for heart valve vegetation. 3. Repeat the blood cultures. 4. Monitor the clinical status. 5. Monitor identity and sensitivity of the yeast. Thank you for this consultation. The patient's progress will be monitored and further recommendations will be given upon followup if necessary. MD ALAN Rodriguez/rh , 12:56 PM , 01:09 PM
[2018-09-18 14:24] LABS: Total Protein 7.7 g/dL (6.4-8.2)
--- NOTE | 2018-09-18 21:19 | MB ---
cc: Ray Moses MD DATE: 09/18/2018 HISTORY OF PRESENT ILLNESS: Consult requested for consideration of JACINDA. Kriss is a pleasant 33-year-old admitted IV drug abuser, transferred from [place] for a JACINDA. The patient denies dysphagia. She has been having chest pain. She does smoke. She admits to IV drug abuse. Otherwise, denies any fevers, chills, cough, GI or bleeding, PND, orthopnea, syncope or dizziness. PAST MEDICAL HISTORY: As per history of present illness. She has a history of tubal ligation, ankle surgery, intestinal surgery, "twisted bowel repair." SOCIAL HISTORY: IV drug abuse, tobacco abuse. Denies alcohol use. ALLERGIES: NONE. MEDICATIONS: In the hospital: 1. Vancomycin. 2. Zosyn. PHYSICAL EXAMINATION: VITAL SIGNS: Blood pressure 144/86, pulse 59, respiratory rate 20, temperature 97.8. GENERAL: She is alert and oriented x 3, in no acute distress. NECK: Supple. No JVD. No bruit. CARDIOVASCULAR: S1, S2. No murmurs, rubs, gallops. LUNGS: Clear to auscultation bilaterally. ABDOMEN: Soft, nontender, nondistended with positive bowel sounds. EXTREMITIES: Lower extremity edema. LABORATORY DATA: Blood cultures are pending. Echocardiogram on 09/16/2013 shows EF 55-60%, trace MR, trace TR. Thoracic spine MRI unremarkable examination with no evidence of abscess or abnormal enhancement. LABORATORY DATA: White count 4.2, hemoglobin 12.0, hematocrit 36.3, platelet count 221. Sodium 140, potassium 3.6, chloride 108, bicarbonate 23.1, AST 119, ALT 160. Toxicology: Vancomycin 5.5. DIAGNOSES: 1. IV drug abuse. 2. Tobacco abuse. 3. Chest pain. DISCUSSION: Dr. Morgan has requested transesophageal echocardiography. I will check cardiac enzymes today and in the morning, and also check an EKG. If there is no evidence of ischemia, plan to proceed with transesophageal echocardiography tomorrow, 09/19/2018. Ray Moses MD [facility]/ , 08:01 PM , 08:08 PM
[2018-09-18] MEDS ORDERED: Pharmacy Ordered Lab Info OTHER ONE (21:45)
[2018-09-19] MEDS: Piperacil/Tazo 3.375 GM Premix 3.375 GM/50 ML PIGGYBACK IV.SIG SCH
--- NOTE | 2018-09-21 00:45 | ECG ---
Date Performed: 09/18/2018 Time Performed: 21:20:17 PTAGE: 33 years EKG: SINUS BRADYCARDIA WITH SINUS ARRHYTHMIA MODERATE T-WAVE ABNORMALITY, CONSIDER ANTEROLATERAL ISCHEMIA ABNORMAL ECG PREVIOUS TRACING : 12/20/2011 11.43 Compared to previous tracing, rate has decreased, ST/T wav e changes more prominent DOCTOR: Bola Marcelo Interpretating Date/Time 09/21/2018 00:44:15
== END 2018-09-19 00:13 | disposition left against medical advice (07) ==
LOC: PHED 04:20 → INTOOBSV 04:30 → PH3 04:30 → N04 09-18 17:43
PROVIDERS: ADMIT Hospitalist; ATTEND Hospitalist